=== PATIENT | male | born 1930 | race Caucasian/White ===

== ENCOUNTER 2016-07-22 23:16 | Observation (INO) | payer OTHER, MEDICARE ==
[~2016-07-22] VITALS: Ht 167.6 cm; Wt 79.8 kg
[~2016-07-22 23:16] MED LIST: ASPIR 8181 MG PO; ATENOLOL50 MG PO; ATORVASTATIN CA80 MG PO; LISINOPRIL20 MG PO; NITROSTAT0.4 MG PO
--- NOTE | 2016-07-22 23:30 | NUR ---
RECEIVED 86 YO MALE C/O LEFT UPPER CHEST AND LEFT SHOULDER PAIN X ONE HOUR WITH SOME DIAPHORESIS. PT HAS A CARDIAC HX INCLUDING CABG. PT TAKEN DIRECTLY FOR EKG.
--- NOTE | 2016-07-22 23:41 | NUR ---
DR OWENS AT BEDSIDE FOR EVAL
[2016-07-22 23:43] LABS: ABSOLUTE BASOPHIL COUNT 0 /CUMM (0.0-0.2); ABSOLUTE EOSINOPHIL COUNT 0.2 /CUMM (0.0-0.7); ABSOLUTE GRANULOCYTE CT 3.8 /CUMM (1.4-6.5); ABSOLUTE LYMPH COUNT 2.1 /CUMM (1.2-3.4); ABSOLUTE MONOCYTE COUNT 0.8 /CUMM (0.10-0.60); BASOPHIL % 0.7 % (0.0-2.0); EOSINOPHIL % 3.3 % (0-5); GRANULOCYTE % 54.3 % (42.2-75.2); HEMATOCRIT 45.5 % (42-52); MEAN CORPUSCULAR HGB 29.6 PG (27.0-31.0); MEAN CORPUSCULAR HGB CONC 33.8 G/DL (33.0-37.0); MEAN CORPUSCULAR VOLUME 87.6 FL (80.0-94.0); MEAN PLATELET VOLUME 8.6 FL (7.4-10.4); PLATELET COUNT 204 /CUMM (130-400); RBC DISTRIBUTION WIDTH 14.1 % (11.5-14.5); RED BLOOD CELL CT 5.19 /CUMM (4.70-6.10)
--- NOTE | 2016-07-22 23:49 | NUR ---
PORTABLE X-RAY AT BEDSIDE
--- NOTE | 2016-07-22 23:52 | ED CARDIAC/CP/PALPITATIONS ---
History of Present Illness General Chief Complaint: Chest Pain Stated Complaint: PT C/O CHEST PAIN CARDIAC HX Source: patient, family, old records Exam Limitations: no limitations Vital Signs & Intake/Output Vital Signs & Intake/Output Vital Signs Date Time Temp Pulse Resp B/P B/P Pulse O2 O2 Flow FiO2 Mean Ox Delivery Rate 07/23 0347 76 18 174/93 98 Room Air 07/23 0231 74 20 164/94 98 Room Air 07/23 0132 67 18 175/93 Room Air 07/22 2342 Room Air 07/22 2339 98.0 62 20 163/85 96 Room Air ED Intake and Output 07/23 0000 07/22 1200 Intake Total Output Total Balance Patient 176 lb Weight Weight Estimated Measurement Method Allergies Coded Allergies: NO KNOWN ALLERGIES (12/26/13) Reconcile Medications Aspirin (Ecotrin*) 81 MG TABLET.DR 1 TAB PO DAILY HEART HEALTH (Reported) Atenolol 50 MG TABLET 1 TAB PO BID BP (Reported) Atorvastatin Calcium 80 MG TABLET 1 TAB PO DAILY CHOLESTROL (Reported) Lisinopril 20 MG TABLET 1 TAB PO DAILY HTN (Reported) Core Measure Meds Pre-Hospital aspirin Triage Note: RECEIVED 86 YO MALE C/O LEFT UPPER CHEST AND LEFT SHOULDER PAIN X ONE HOUR WITH SOME DIAPHORESIS. PT HAS A CARDIAC HX INCLUDING CABG. PT TAKEN DIRECTLY FOR EKG. Triage Nurses Notes Reviewed? yes Onset: Just prior to arrival Duration: minute(s):, better, gone now Timing: recent history Quality/Severity: moderate, aching Location: left chest Radiation: shoulders Activities at Onset: sleep Prior Chest Pain/Card Workup: cardiac cath, echocardiography, heart attack, stress test Modifying Factors: Improves With: rest. Nitro Today/Relief: no nitro taken today Aspirin Today: 325 mg x 1, provided at home Associated Symptoms: dizziness HPI: Prior to admission patient awoke with left-sided chest pain described as achy moderate in severity radiating to left arm constant resolving after a few minutes and Tylenol. Associated with dizziness. He denies fever chills nausea vomiting diarrhea abdominal pain shortness of breath headache dysuria rash bleeding. Past History Travel History Traveled to [place] past 21 day No Medical History Any Pertinent Medical History? see below for history Neurological: NONE EENT: NONE Cardiovascular: CAD, hypertension, hyperlipidemia Respiratory: NONE Gastrointestinal: NONE Hepatic: NONE Renal: NONE Musculoskeletal: NONE Psychiatric: NONE Endocrine: NONE Blood Disorders: NONE Cancer(s): NONE History of MRSA: No History of VRE: No History of CDIFF: No Pneumonia Vaccine: 02/07/09 Surgical History Surgical History: non-contributory Psychosocial History Who do you live with Family What is your primary language Nam[place]ian Tobacco Use: Quit >30 days ago Family History Family History, If Any: Relation not specified for: *No pertinent family history Hx Contributory? No Review of Systems Review of Systems Constitutional: Reports: no symptoms. EENTM: Reports: no symptoms. Respiratory: Reports: no symptoms. Cardiovascular: Reports: see HPI, chest pain. GI: Reports: no symptoms. Genitourinary: Reports: no symptoms. Musculoskeletal: Reports: no symptoms. Skin: Reports: no symptoms. Neurological/Psychological: Reports: no symptoms. Hematologic/Endocrine: Reports: no symptoms. Immunologic/Allergic: Reports: no symptoms. All Other Systems: Reviewed and Negative Physical Exam Physical Exam General Appearance: well developed/nourished, alert, awake, anxious, mild distress Head: atraumatic, normal appearance Eyes: Bilateral: normal appearance, PERRL, EOMI. Ears, Nose, Throat: normal pharynx, normal ENT inspection Neck: normal inspection, supple, full range of motion, no midline tenderness Respiratory: normal breath sounds, chest non-tender, no respiratory distress, quiet respiration, lungs clear Cardiovascular: regular rate/rhythm, normal peripheral pulses, norml femoral pulses equa Peripheral Pulses: 4+ carotid (R), 4+ carotid (L) Gastrointestinal: normal bowel sounds, soft, non-tender, no organomegaly Back: normal inspection, normal range of motion Extremities: normal inspection, normal capillary refill, normal range of motion, no edema Neurologic/Psych: no motor/sensory deficits, awake, alert, oriented x 3, normal gait, normal mood/affect Reflexes: 2+: bicep (R), bicep (L). Skin: intact, normal color Lymphatic: no anterior cervical taye Core Measures ACS in differential dx? Yes ASA ordered for poss ACS? No-other contraindication (taken VEGETABLE SCULLION) Severe Sepsis Present: No Septic Shock Present: No Progress Differential Diagnosis: AMI, costochondritis, pneumonia Plan of Care: Orders Procedure Date/time Status Heart Healthy Diet 07/23 B Active TROPONIN LEVEL 07/23 1000 Active EKG 07/23 1000 Active Pathway - chart 07/23 0443 Active Code Status 07/23 0443 Active TROPONIN LEVEL 07/23 0354 Complete Teach/Educate 07/23 033 Active Pain Treatment and Response 07/23 033 Active Nutritional Intake, Monitor 07/23 330 Active Isolation 07/23 330 Active Patient Care Conference 07/23 0331 Active Patient Data 07/23 0242 Active OXYGEN SETUP (GEN) 07/23 222 Active Saline Lock 07/[address] in observation 07/23 222 Active Vital Signs 07/23 222 Active Activity/Ambulation 07/23 222 Active Code Status 07/23 222 Complete EKG 07/23 0122 Active House Staff 07/23 UNK Active VTE Mechanical Prophylaxis 07/23 UNK Active Vital Signs 07/23 UNK Active Intake & Output 07/22 2341 Active TROPONIN LEVEL 07/22 2324 Complete MAGNESIUM 07/22 2324 Complete COMPREHENSIVE METABOLIC PANEL 07/22 2324 Complete CBC WITHOUT DIFFERENTIAL 07/22 2324 Complete EKG 07/22 2320 Active Current Medications Sig/Levi Start time Last Medication Dose Stop Time Status Admin Aspirin Buffered 81 MG DAILY 07/23 1000 AC (Ecotrin) Atenolol 50 MG BID 07/23 1000 AC (Tenormin) Atorvastatin Calcium 80 MG DAILY 07/23 1000 AC (Lipitor) Enoxaparin Sodium 40 MG DAILY 07/23 1000 AC (Lovenox) Lisinopril 20 MG DAILY 07/23 1000 AC (Prinivil) Omeprazole 40 MG DAILY AC 07/23 0700 AC (Prilosec) Nitroglycerin 0.5 GM Q6P PRN 07/23 0500 AC (Nitro-Bid) Sodium Chloride 1,000 ML Q13H 07/23 0445 AC (Normal Saline 0.9%) 07/23 1744 Laboratory Tests 07/23/16 0400: Troponin I 0.02 07/22/16 2331: Anion Gap 12, Estimated GFR > 60, BUN/Creatinine Ratio 20.9, Glucose 110 H, Calcium 9.1, Magnesium 2.0, Total Bilirubin 0.6, AST 34, ALT 38, Alkaline Phosphatase 81, Troponin I < 0.01, Total Protein 6.8, Albumin 3.9, Globulin 2.9, Albumin/Globulin Ratio 1.3, CBC w Diff NO MAN DIFF REQ, RBC 5.19, MCV 87.6, MCH 29.6, RDW 14.1, MPV 8.6, Gran % 54.3, Lymphocytes % 30.2, Monocytes % 11.5 H, Eosinophils % 3.3, Basophils % 0.7, Absolute Granulocytes 3.8, Absolute Lymphocytes 2.1, Absolute Monocytes 0.8 H, Absolute Eosinophils 0.2, Absolute Basophils 0, PUBS MCHC 33.8 Diagnostic Imaging: Viewed by Me: Radiology Read. Discussed w/RAD: Radiology Read. CXR Impression: no acute abnormality Initial ED EKG: normal axis, normal intervals, normal p-waves, normal QRS complex, normal sinus rhythm, nonspecific ST T wave chg Prior EKG: unchanged Rhythm Strip: normal sinus rhythm Departure Departure Disposition: STILL A PATIENT Condition: Stable Clinical Impression Primary Impression: Chest pain with moderate risk of acute coronary syndrome Referrals: ARCELIA VILLALTA MD (PCP/Family) Departure Forms: Customer Survey General Discharge Information Observation Note Spoke With: ARCELIA VILLALTA MD Physician Advisor Notified: BRANDYN MACEDO DO Place Patient In: Non-ED OBS Care Area Rationale for Observation: My rational for observation is as follows second episode of chest pain in the emergency department relief with nitroglycerin having previous CABG with recent cardiac catheterization reportedly showing 1 stenosed vessel cardiac monitoring serial lab exam medication adjustment cardiology evaluation continuing care discharge planning. Critical Care Note Critical Care Note Critical Care Time: 30-74 min (40)
--- NOTE | 2016-07-23 00:18 | RADIOLOGY REPORT ---
EXAMINATION: XR PORTABLE CHEST CLINICAL INFORMATION: Chest pain COMPARISON: None TECHNIQUE: Portable frontal view of the chest was obtained. FINDINGS: The lungs are mildly hypoinflated and appear clear without focal consolidation. No evidence of pneumothorax, pleural effusion, or pulmonary edema. Cardiac size is within normal limits. Calcification is present at the aortic arch. Sternal wires are present. No acute osseous findings are seen. IMPRESSION: No acute cardiopulmonary findings.
--- NOTE | 2016-07-23 01:28 | NUR ---
PT REPORTING 7/10 "SQUEEZING" PAIN IN LEFT ARM RADIATING TO CHEST. DR OWENS NOTIFIED AND AT BEDSIDE FOR EVAL. REPEAT EKG DONE. PT MEDICATED WITH NITRO 0.4MG SL. PT REPORTED RELIEF POST MEDICATION ADMIN. PAIN DECREASED TO 5/10
--- NOTE | 2016-07-23 02:30 | NUR ---
IV ESTABLISHED IN R FA. 1GM NITRO PASTE APPLIED TO L CHEST WALL
--- NOTE | 2016-07-23 03:01 | History & Physical ---
MARCIAL NARANJO,[facility] 07/23/16 0301: General Information and HPI MD Statement: I have seen and personally examined JAKUB BURROWS and documented this H&P. The patient is a 86 year old M who presented with a patient stated chief complaint of [chest pain]. Source of Information: patient Exam Limitations: no limitations History of Present Illness: Patient is a 86-year-old with PMH of CAD, HTN, HLD, who is brought in by his son due to sudden onset chest pain that started while he was sleeping. Pain was located on the left side of the chest, radiating to left shoulder but not the jaw. Denied midsternal chest pain or pressure. Denied any diaphoresis, palpitation, dizziness, nausea/vomiting. Pain lasted about 10-15 minutes and did not resolve with tylenol. Denies heartburn and acid reflux, denies shortness of breath or coughing. Patient has a history of CABG in 2002 at [facility], follows up with Dr. Hernandez. Allergies/Medications Allergies: Coded Allergies: NO KNOWN ALLERGIES (12/26/13) Past History Travel History Traveled to [place] past 21 day No Medical History Neurological: NONE EENT: NONE Cardiovascular: CAD, hypertension, hyperlipidemia Respiratory: NONE Gastrointestinal: NONE Hepatic: NONE Renal: NONE Musculoskeletal: NONE Psychiatric: NONE Endocrine: NONE Blood Disorders: NONE Cancer(s): NONE History of MRSA: No History of VRE: No History of CDIFF: No Pneumonia Vaccine: 02/07/09 Surgical History Surgical History: non-contributory (CABG in 2002) Past Family/Social History Family History Relations & Conditions if any Relation not specified for: *No pertinent family history Review of Systems Review of Systems Constitutional: Denies: chills, fever. EENTM: Reports: no symptoms. Cardiovascular: Denies: chest pain, palpitations, peripheral edema, syncope. Respiratory: Denies: cough, short of breath, sputum production. GI: Reports: no symptoms. Genitourinary: Reports: no symptoms. Musculoskeletal: Reports: no symptoms. Skin: Reports: no symptoms. Neurological/Psychological: Reports: no symptoms. Hematologic/Endocrine: Reports: no symptoms. Exam & Diagnostic Data Last 24 Hrs of Vital Signs/I&O Vital Signs Date Time Temp Pulse Resp B/P B/P Pulse O2 O2 Flow FiO2 Mean Ox Delivery Rate 07/23 0347 76 18 174/93 98 Room Air 07/23 0231 74 20 164/94 98 Room Air 07/23 0132 67 18 175/93 Room Air 07/22 2342 Room Air 07/22 2339 98.0 62 20 163/85 96 Room Air Intake & Output 07/23 0800 07/23 0000 07/22 1600 Intake Total Output Total Balance Patient 79.832 kg 79.832 kg Weight Weight Estimated Measurement Method Physical Exam General Appearance Alert, Oriented X3, Cooperative, No Acute Distress Skin No Significant Lesion Skin Temp/Moisture Exam: Warm/Dry Sepsis Skin Exam (color): Normal for Ethnicity HEENT Atraumatic, EOMI, Mucous Membr. moist/pink, pupils equal, round and reactive to light Neck Supple Cardiovascular Regular Rate, Normal S1, Normal S2, No Murmurs Lungs Clear to Auscultation, Normal Air Movement Abdomen Normal Bowel Sounds, Soft, No Tenderness Neurological Normal Speech, Strength at 5/5 X4 Ext, Normal Tone, Sensation Intact, Cranial Nerves 3-12 NL Extremities No Edema, Normal Pulses, No Tenderness/Swelling Vascular Pulses Symmetrical Last 24 Hrs of Labs/Felix: Laboratory Tests 07/23/16 0400: Troponin I 0.02 07/22/16 2331: Anion Gap 12, Estimated GFR > 60, BUN/Creatinine Ratio 20.9, Glucose 110 H, Calcium 9.1, Magnesium 2.0, Total Bilirubin 0.6, AST 34, ALT 38, Alkaline Phosphatase 81, Troponin I < 0.01, Total Protein 6.8, Albumin 3.9, Globulin 2.9, Albumin/Globulin Ratio 1.3, CBC w Diff NO MAN DIFF REQ, RBC 5.19, MCV 87.6, MCH 29.6, RDW 14.1, MPV 8.6, Gran % 54.3, Lymphocytes % 30.2, Monocytes % 11.5 H, Eosinophils % 3.3, Basophils % 0.7, Absolute Granulocytes 3.8, Absolute Lymphocytes 2.1, Absolute Monocytes 0.8 H, Absolute Eosinophils 0.2, Absolute Basophils 0, PUBS MCHC 33.8 Assessment/Plan Assessment: Patient is a 86-year-old with PMH of HTN, HLD, CABG in 2002 who is brought in by his son due to sudden onset chest pain that started while he was sleeping. Pain was located on the left side of the chest, radiating to left shoulder but bit the jaw. Problem list and plan: 1. Chest pain, rule out ACS * continuous cardiac monitoring * no initial EKG changes, Troponin (-) * serial troponin and EKG * continue aspirin, statin, beta brock * cardiology consult in am 2. Hx of CABG, HTN, HLD * Continue atenolol, lisinopril on hold due to LULA * Continue atorvastatin Heart healthy diet DVT prophylaxis: SC Lovenox Full code As Ranked By This Provider Problem List: 1. Chest pain Core Measures/Miscellaneous Acute Coronary Syndrome ACS Diagnosis: No Cerebrovascular Accident CVA/TIA Diagnosis: No Congestive Heart Failure CHF Diagnosis: No VTE (View Protocol) VTE Risk Factors: Acute medical illness, Age > 40 No [facility] VTE prophylaxis d/t: VTE low risk, No contraindications No VTE Pharm Prophylaxis d/t: VTE low risk, No contraindications VTE Diagnosis: No VTE Type: NONE VTE Confirmed by (Test): NONE Sepsis (View Protocol) Severe Sepsis Present: No Septic Shock Septic Shock Present: No Miscellaneous Documentation Attending Case Discussed With: ARCELIA VILLALTA MD Primary Care Physician: ARCELIA VILLALTA MD Patient sees these Specialists Dr. Hernandez Level of Patient Care: Telemetry RUBENS BUTLER 07/23/16 0447: General Information and HPI Allergies/Medications Home Med list Aspirin (Ecotrin*) 81 MG TABLET.DR 1 TAB PO DAILY HEART HEALTH (Reported) Atenolol 50 MG TABLET 1 TAB PO BID BP (Reported) Atorvastatin Calcium 80 MG TABLET 1 TAB PO DAILY CHOLESTROL (Reported) Lisinopril 20 MG TABLET 1 TAB PO DAILY HTN (Reported) Resident Review Statement Resident Statement: examined this patient, discussed with equine intern, agreed with equine intern, reviewed images, amended to note Other Findings: 86 year old gentleman with history of hypertension, dyslipidemia and CAD s/p CANG in 2002 presents to [facility] ED after experiencing chest discomfort , that woke him up from his sleep. The pain radiated from his chest to left arm , lasted around 15 minutes, and was associated with diaphoresis, no nausea. Patient took Tylenol for the pain, to no effect. He denied any lightheadedness or palpitations. Denies any acid reflux, but patient admits to going to a birthday republican last night, where he had a small meal and cake. Patient came to the ED and the electrocardiogram reveals normal sinus rhythm. Labs reviewed, no significant abnormalities. SAMANTHA score of 4, at risk for recurrent ischemia requiring urgent revascularization. 1. Unstable angina: Admit to telemetry. Rule out with serial troponins and EKG. Continue aspirin, statin and beta brock. Cardiology evaluation. Trial of acid suppression. 2. Hypertension: Continue lisinopril, atenolol. 3. Hyperlipidemia: Continue atorvastatin. Full code. Heart healthy diet. Lovenox for DVT prophylaxis.
--- NOTE | 2016-07-23 03:04 | NUR ---
POC: PATIENT TELE OBS HOLD IN ED. PATIENT RESTING ON STRETCHER IN ROOM AT THIS TIME, HR: 70 NSR ON MONITOR.
--- NOTE | 2016-07-23 03:46 | NUR ---
AWOKE PATIENT FROM SLEEP TO APPLY ALPS. PATIENT DENIES CURRENT CP. HR:76 NSR ON MONITOR.
--- NOTE | 2016-07-23 03:47 | NUR ---
PATIENT AMBULATORY TO AND FROM BATHROOM W/ STABLE GAIT NOTED. REPLACED ON LEATHER STAKER WHEN RETURNED TO ROOM. CONTINUES TO DENY CP. IPOC INITIATED AND UTD.
--- NOTE | 2016-07-23 03:58 | NUR ---
AWOKE PATIENT FROM SLEEP AGAIN TO OBTAIN REPEAT TROP AT THIS TIME.
--- NOTE | 2016-07-23 04:11 | NUR ---
HOUSE STAFF AT BEDSIDE FOR EVAL.
[2016-07-23] MEDS ORDERED: ASPIRIN EC81 M1 PO (04:44)
[2016-07-23] MEDS ORDERED: ATENOLOL50 M1 PO (04:44)
[2016-07-23] MEDS ORDERED: LISINOPRIL20 M1 PO (04:45)
[2016-07-23] MEDS ORDERED: ATORVASTATIN CA80 M1 PO (04:45)
--- NOTE | 2016-07-23 06:04 | NUR ---
PATIENT PLACED IN HOSPITAL BED AT THIS TIME, ALPS REMAIN IN PLACE. PATIENT BP:147/85, HR:68 NSR. PATIENT DENIES ANY CP. AMBULATORY TO BATHROOM IN ROOM W/O ASSIST/ DIFFICULTY.
--- NOTE | 2016-07-23 06:15 | NUR ---
PATIENT MEDICATED W/ PRILOSEC AND NORVASC PER EMAR. TOLERATED WELL. ALPS AND FUNCTIONAL SKILLS TUTOR REMAIN IN PLACE. NS INFUSING AT 75ML/HR PER EMAR. TOLERATING WELL.
--- NOTE | 2016-07-23 07:58 | NUR ---
ASSUMED CARE OF PT WHO IS AWAKE AND ALERT. PT DENIES CP/SOB AT THIS TIME. PT DECLINES BREAKFAST TRAY. PT UNDERSTANDS THAT REPEAT TROPONIN AND EKG DUE AT 1000
--- NOTE | 2016-07-23 08:28 | NUR ---
FAMILY AT BEDSIDE. PT EATING BREAKFAST TRAY
--- NOTE | 2016-07-23 08:57 | NUR ---
PT ASSISTED TO BR.
--- NOTE | 2016-07-23 10:38 | NUR ---
SON OF PT AT BEDSIDE. PT OOB TO BR AGAIN WITH STEADY GAIT. WAITING FOR ADMISSION BED. PT AWARE
--- NOTE | 2016-07-23 11:02 | PN- Att Addend ---
Attending Addendum Attending Brief Note 86-year-old white male with history of coronary artery disease and he stated that he went to bed last night in a couple of hours later he woke up with severe chest pain radiated to his left arm lasted about 10 minutes a so this morning the son brought him to the emergency room for evaluation. Due to his history of coronary artery disease and will be monitored he will have cardiac enzymes serial EKGs by his first troponinI was 0.[address] Hernandez to see the patient in consultation. Laboratory Tests 07/23 07/23 07/22 1038 [id number] 2331 Chemistry Sodium (137 - 145 mmol/L) 142 Potassium (3.5 - 5.1 mmol/L) 4.3 Chloride (98 - 107 mmol/L) 105 Carbon Dioxide (22 - 30 mmol/L) 25 Anion Gap (5 - 16) 12 BUN (9 - 20 mg/dL) 23 H Creatinine (0.7 - 1.2 mg/dL) 1.1 Estimated GFR (>60 ml/min) > 60 BUN/Creatinine Ratio (7 - 25 %) 20.9 Glucose (65 - 99 mg/dL) 110 H Calcium (8.4 - 10.2 mg/dL) 9.1 Magnesium (1.6 - 2.3 mg/dL) 2.0 Total Bilirubin (0.2 - 1.3 mg/dL) 0.6 AST (17 - 59 U/L) 34 ALT (21 - 72 U/L) 38 Alkaline Phosphatase (< 127 U/L) 81 Troponin I (<0.11 ng/ml) Pending 0.02 < 0.01 Total Protein (6.3 - 8.2 g/dL) 6.8 Albumin (3.5 - 5.0 g/dL) 3.9 Globulin (1.9 - 4.2 gm/dL) 2.9 Albumin/Globulin Ratio (1.1 - 2.2 %) 1.3 Hematology CBC w Diff NO MAN DIFF REQ WBC (4.8 - 10.8 /CUMM) 7.0 RBC (4.70 - 6.10 /CUMM) 5.19 Hgb (14.0 - 18.0 G/DL) 15.4 Hct (42 - 52 %) 45.5 MCV (80.0 - 94.0 FL) 87.6 MCH (27.0 - 31.0 PG) 29.6 RDW (11.5 - 14.5 %) 14.1 Plt Count (130 - 400 /CUMM) 204 MPV (7.4 - 10.4 FL) 8.6 Gran % (42.2 - 75.2 %) 54.3 Lymphocytes % (20.5 - 51.1 %) 30.2 Monocytes % (1.7 - 9.3 %) 11.5 H Eosinophils % (0 - 5 %) 3.3 Basophils % (0.0 - 2.0 %) 0.7 Absolute Granulocytes (1.4 - 6.5 /CUMM) 3.8 Absolute Lymphocytes (1.2 - 3.4 /CUMM) 2.1 Absolute Monocytes (0.10 - 0.60 /CUMM) 0.8 H Absolute Eosinophils (0.0 - 0.7 /CUMM) 0.2 Absolute Basophils (0.0 - 0.2 /CUMM) 0 PUBS MCHC (33.0 - 37.0 G/DL) 33.8 The patient is feeling of pain at the time of my interview.
--- NOTE | 2016-07-23 11:27 | NUR ---
REPORT RECEIVED FROM MARISOL LIMA; CARE OF PT ASSUMED
--- NOTE | 2016-07-23 13:59 | Patient Discharge Instructions ---
Discharge Instructions General Discharge Information You were seen/treated for: chest pain Special Instructions: please follow up with case management associate with in a week of discharge. please follow up with PCP with in a week of discharge. Diet Continue normal diet: No (heart healthy diet) Activity Full Activity/No Limits: No (as tolerated) Acute Coronary Syndrome Inclusion Criteria At DC or during hospital stay patient has or had the following: ACS DIAGNOSIS No Discharge Core Measures Meds if any: Prescribed or Continued at Discharge Meds if any: NOT Prescribed or Continued at Discharge Congestive Heart Failure Inclusion Criteria At DC or during hospital stay patient has or had the following: CHF DIAGNOSIS No Discharge Core Measures Meds if any: Prescribed or Continued at Discharge Meds if any: NOT Prescribed or Continued at Discharge Cerebrovascular accident Inclusion Criteria At DC or during hospital stay patient has or had the following: CVA/TIA Diagnosis No Discharge Core Measures Meds if any: Prescribed or Continued at Discharge Meds if any: NOT Prescribed or Continued at Discharge Venous thromboembolism Inclusion Criteria VTE Diagnosis No VTE Type NONE VTE Confirmed by (Test) NONE Discharge Core Measures - Per Current guidelines, there needs to be overlap - treatment for the first 5 days of Warfarin therapy. - If discharged on Warfarin prior to 5 days of - overlap therapy, the patient will need to be - assessed for post discharge needs including - *Post discharge parental anticoagulation - *Warfarin and/or parental anticoagulation education - *Follow up date to check INR post discharge At least 5 days overlap therapy as Inpatient No Meds if any: Prescribed or Continued at Discharge Warfarin No Note: Overlap Therapy is Warfarin and Anticoagulant Meds if any: NOT Prescribed or Continued at Discharge
[2016-07-23 14:02] VITALS: BP 172/90
--- NOTE | 2016-07-23 15:39 | Event Note ---
Event Note Event Note: patient is seen and examined at the bed side. He doesnt have any active complain. Serial troponins were negative. We stopped IV fluids. We place the consult for cardiology.Talked over the phone with Dr Hernandez and will decide for discharge according to his rcms.
--- NOTE | 2016-07-23 16:12 | NUR ---
FAMILY IS UPDATED ON BED STATUS.
--- NOTE | 2016-07-23 18:04 | Cons- Cardiology ---
General Information and HPI Consulting Request Date of Consult: 07/23/16 Requested By: ARCELIA VILLALTA MD History of Present Illness: Gay is an 86 year old male with history of hypertension, dyslipidemia and coronary artery disease s/p CABG in 2005. Last evening this patient was lying in bed when he experienced a severe chest pressure radiating to his left arm associated with diaphoresis. It lasted about 15 minutes before resolving. At his baseline he has slowed down according to his family. Otherwise the patient denies any shortness of breath, lightheadedness or palpitations. There was no association of the pain with eating or breathing. He is now pain free with normal cardiac enzymes. Allergies/Medications Allergies: Coded Allergies: NO KNOWN ALLERGIES (12/26/13) Home Med List: Aspirin (Ecotrin*) 81 MG TABLET.DR 1 TAB PO DAILY HEART HEALTH (Reported) Atenolol 50 MG TABLET 1 TAB PO BID BP (Reported) Atorvastatin Calcium 80 MG TABLET 1 TAB PO DAILY CHOLESTROL (Reported) Lisinopril 20 MG TABLET 1 TAB PO DAILY HTN (Reported) Past History Travel History Traveled to [place] past 21 day No Medical History Neurological: NONE EENT: NONE Cardiovascular: CAD, hypertension, hyperlipidemia Respiratory: NONE Gastrointestinal: NONE Hepatic: NONE Renal: NONE Musculoskeletal: NONE Psychiatric: NONE Endocrine: NONE Blood Disorders: NONE Cancer(s): 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 Surgical History Surgical History: non-contributory Family History Relations & Conditions If Any: Relation not specified for: *No pertinent family history Psychosocial History Smoking Status: Former Smoker Exam & Diagnostic Data Vital Signs and I&O Vital Signs Date Time Temp Pulse Resp B/P B/P Pulse O2 O2 Flow FiO2 Mean Ox Delivery Rate 07/23 1736 98.2 64 16 132/84 97 Room Air 07/23 1519 98.1 62 16 166/88 96 Room Air 07/23 1402 97.2 66 172/90 07/23 1026 97.1 86 18 138/90 96 07/23 0945 98.1 69 20 150/80 07/23 0945 98.1 69 20 150/80 07/23 0614 98.1 68 18 147/85 07/23 0604 98.1 68 18 147/85 95 Room Air 07/23 0347 76 18 174/93 98 Room Air 07/23 0231 74 20 164/94 98 Room Air 07/23 0132 67 18 175/93 Room Air 07/22 2342 Room Air 07/22 2339 98.0 62 20 163/85 96 Room Air Intake & Output 07/23 1600 07/23 0800 07/23 0000 07/22 1600 07/22 0800 07/22 0000 Intake Total 240 Output Total Balance 240 Intake, Oral 240 Patient 176 lb 176 lb Weight Weight Estimated Measurement Method Physical Exam: General: WD/ WN male in NAD; alert and oriented x 3 HEENT: NC/ AT, PERRL, EOMI Neck: no JVD, no carotid bruit Heart: RRR w/o murmur Lungs: clear bilaterally Abdomen: soft, NT, +ve bowel sounds Extremities: no edema Assessment/Plan Assessment/Plan * This patient has known coronary artery disease with old bypass grafts and symptoms very suggestive of unstable angina. He feels gratifyingly well at present with normal cardiac enzymes. This patient should be monitored on telemetry and administered IV heparin for 48 hours. If stable after that time he may be discharged to home with a plan for outpatient stress test. In addition to IV heparin continue aspirin, NTG patch as previously prescribed, beta blockers, Lisinopril and a statin all as previously prescribed. Consult Acknowledgment - Thank you for your consult request.
[2016-07-23 23:31] VITALS: BP 178/89
--- NOTE | 2016-07-24 00:09 | NUR ---
REPORT GIVEN TO MARISOL JORDAN
[2016-07-24 01:41] LABS: PTT > 120 SEC (25-37)
--- NOTE | 2016-07-24 02:22 | Event Note ---
Event Note Event Note: I spoke with the Attending Dr. Lutz and he wants the patient's observation status to be extended for 24hrs so she can get the IV heparin ordered by cardiology.
[2016-07-24 02:34] VITALS: BP 168/104
[2016-07-24 08:25] LABS: PTT 62 SEC (25-37)
[2016-07-24 09:09] VITALS: BP 122/68
--- NOTE | 2016-07-24 12:04 | PN- Att Addend ---
Attending Addendum Attending Brief Note Patient is chest pain-free this morning and has no other complaints General Appearance: Alert, No Acute Distress Skin: Grossly normal HEENT: PEERLA Neck: Supple, No JVD Cardiovascular: Regular Rate, Normal S1, Normal S2, No Murmurs Lungs: Clear to Auscultation, Normal Air Movement Abdomen: Normal Bowel Sounds, Soft, No Tenderness Neurological: Normal Speech, Strength at 5/5 X4 Ext, Cranial Nerves 3-12 NL, Reflexes 2+ Extremities: No Clubbing, No Cyanosis, No Edema Vascular: Normal Pulses Assessment Unstable angina currently on heparin drip for last 24 hours and he is chest pain -free. Patient is requesting to be discharged tomorrow since it's a Father's Day. Plan was discussed with cardiology. We'll continue heparin drip for 24 hours and if he remains asymptomatic he will be discharged home with outpatient follow-up with cardiology. Patient had a extensive cardiac evaluation including cardiac cath fall which according to the family and the patient was negative. Plan Continue heparin drip for next 24 hours Continue telemetry monitoring Observe for symptoms Continue other home meds Current Medications Sig/Levi Start time Last Medication Dose Route Stop Time Status Admin Aspirin Buffered 81 MG DAILY 07/23 1000 AC 07/24 PO 0931 Atenolol 50 MG BID 07/23 1000 AC 07/24 PO 0931 Atorvastatin Calcium 80 MG DAILY 07/23 1000 AC 07/24 PO 0931 Enoxaparin Sodium 40 MG DAILY 07/23 1000 DC 07/23 SC 0945 Heparin Sodium/ 25,000 UNIT Q24H 07/23 1845 AC 07/23 Dextrose IV 1847 Dextrose/Water 500 ML Lisinopril 20 MG DAILY 07/23 1000 AC 07/24 PO 0931 Nitroglycerin 0.5 GM Q6P PRN 07/23 0500 TOP Omeprazole 40 MG DAILY AC 07/23 0700 AC 07/24 PO 0930 Sodium Chloride 1,000 ML Q13H 07/23 0445 DC 07/23 IV 07/23 1744 0614 Laboratory Tests 07/24 07/24 0611 0104 Coagulation APTT (25 - 37 SEC) 62 H > 120 *H Vital Signs Date Time Temp Pulse Resp B/P B/P Pulse O2 O2 Flow FiO2 Mean Ox Delivery Rate 07/24 0931 60 122/68 07/24 0931 60 122/68 06/17 0909 98.2 60 18 122/68 95 Room Air 06/17 0234 98.1 62 20 168/104 94 Room Air 06/16 2331 63 19 178/89 95 Room Air 06/16 2331 63 19 178/89 95 Room Air 06/16 2234 66 17 158/82 06/16 2031 98.6 66 17 158/82 99 Room Air 06/16 1736 98.2 64 16 132/84 97 Room Air 16 1519 98.1 62 16 166/88 96 Room Air 06/16 1402 97.2 66 172/90 Plan
--- NOTE | 2016-07-24 13:24 | PN-Observation ---
Observation Note Observation Note _ I have personally examined JAKUB BURROWS. him disposition is uncertain at this time. Before a determination can be made, he requires continued observation for unstable angina Assessment/Plan Assessment: Jakub is an 86 year old male with history of hypertension, dyslipidemia and coronary artery disease s/p CABG in 2005. a day before yesterday he experienced a severe chest pressure radiating to his left arm associated with diaphoresis. No repeat episodes of chest pain, patient denies any shortness of breath, lightheadedness or palpitations. trops and ekg negative. Patient to be continued on IV heparin for next 24 hours. Problem List: 1. Unstable angina Subjective Follow-up For: unstable angina Review of Systems Constitutional: Denies: chills, fever. Cardiovascular: Denies: chest pain, orthopena, palpitations. Objective Last 24 Hrs of Vital Signs/I&O Vital Signs Date Time Temp Pulse Resp B/P B/P Pulse O2 O2 Flow FiO2 Mean Ox Delivery Rate 07/24 0931 60 122/68 07/24 0931 60 122/68 07/24 0909 98.2 60 18 122/68 95 Room Air 07/24 0234 98.1 62 20 168/104 94 Room Air 07/23 2331 63 19 178/89 95 Room Air 07/23 2331 63 19 178/89 95 Room Air 07/23 2234 66 17 158/82 07/23 2031 98.6 66 17 158/82 99 Room Air 07/23 1736 98.2 64 16 132/84 97 Room Air 07/23 1519 98.1 62 16 166/88 96 Room Air 07/23 1402 97.2 66 172/90 Intake & Output 07/24 1600 07/24 0800 07/24 0000 Intake Total 800 Output Total Balance 800 Intake, IV 800 Physical Exam General Appearance: Alert, Oriented X3, Cooperative, No Acute Distress Cardiovascular: Regular Rate, Normal S1, Normal S2, No Murmurs Lungs: Clear to Auscultation, Normal Air Movement Abdomen: Normal Bowel Sounds, Soft, No Tenderness Extremities: No Clubbing, No Cyanosis, No Edema
[2016-07-24 15:39] VITALS: BP 104/70
--- NOTE | 2016-07-24 19:08 | PN- Cardiology ---
Subjective Subjective: The patient reports that he is feeling well. No further chest pain. No shortness of breath. No palpitations. No diaphoresis. Objective Vital Signs and I&Os Vital Signs Date Time Temp Pulse Resp B/P B/P Pulse O2 O2 Flow FiO2 Mean Ox Delivery Rate 07/24 1539 98.6 70 20 104/70 95 07/24 0931 60 122/68 07/24 0931 60 122/68 07/24 0909 98.2 60 18 122/68 95 Room Air 07/24 0234 98.1 62 20 168/104 94 Room Air 07/23 2331 63 19 178/89 95 Room Air 07/23 2331 63 19 178/89 95 Room Air 07/23 2234 66 17 158/82 07/23 2031 98.6 66 17 158/82 99 Room Air Intake & Output 07/24 1600 07/24 0800 07/24 0000 07/23 1600 07/23 0800 07/23 0000 Intake Total 800 240 Output Total Balance 800 240 Intake, IV 800 Intake, Oral 240 Patient 176 lb 176 lb Weight Weight Estimated Measurement Method Physical Exam: Gen: NAD HEENT: normal Lungs: clear to auscultation, normal resp. effort Heart: RRR, S1, S2, no murmurs Abdomen: Soft, nontender, no masses Extremities: No clubbing, cyanosis, or edema. Neuro: Alert and oriented x 3, cranial nerves intact Current Medications: Current Medications Sig/Levi Start time Last Medication Dose Route Stop Time Status Admin Aspirin Buffered 81 MG DAILY 07/23 1000 AC 07/24 PO 0931 Atenolol 50 MG BID 07/23 1000 AC 07/24 PO 0931 Atorvastatin Calcium 80 MG DAILY 07/23 1000 AC 07/24 PO 0931 Heparin Sodium/ 25,000 UNIT Q24H 07/23 1845 07/23 Dextrose IV 1847 Dextrose/Water 500 ML Lisinopril 20 MG DAILY 07/23 1000 AC 07/24 PO 0931 Nitroglycerin 0.5 GM Q6P PRN 07/23 0500 [facility] Omeprazole 40 MG DAILY AC 07/23 0700 07/24 PO 0930 Results Last 48 Hrs of Labs/Mics: Laboratory Tests 07/24/16 1830: APTT Pending 07/24/16 0611: APTT 62 H 07/24/16 0104: APTT > 120 *H 07/23/16 1038: Troponin I 0.05 07/23/16 0400: Troponin I 0.02 07/22/16 2331: Anion Gap 12, Estimated GFR > 60, BUN/Creatinine Ratio 20.9, Glucose 110 H, Calcium 9.1, Magnesium 2.0, Total Bilirubin 0.6, AST 34, ALT 38, Alkaline Phosphatase 81, Troponin I < 0.01, Total Protein 6.8, Albumin 3.9, Globulin 2.9, Albumin/Globulin Ratio 1.3, Triglycerides 202 H, Cholesterol 144, LDL Cholesterol, Calc 65, HDL Cholesterol 39 L, Cholesterol/HDL Ratio 4, CBC w Diff NO MAN DIFF REQ, RBC 5.19, MCV 87.6, MCH 29.6, RDW 14.1, MPV 8.6, Gran % 54.3, Lymphocytes % 30.2, Monocytes % 11.5 H, Eosinophils % 3.3, Basophils % 0.7, Absolute Granulocytes 3.8, Absolute Lymphocytes 2.1, Absolute Monocytes 0.8 H, Absolute Eosinophils 0.2, Absolute Basophils 0, PUBS MCHC 33.8 Assessment/Plan Assessment/Plan Assessment: 1. CAD, with remote history of CABG 2. Chest pain, ruled out for myocardial infarction. Possible unstable angina Plan: * Continue IV heparin * Continue aspirin * Continue statin * Discharge tomorrow if stable for further workup as outpatient Continue telemetry? Yes
[2016-07-24 19:09] LABS: PTT 103 SEC (25-37)
[2016-07-24 23:57] VITALS: BP 110/68
[2016-07-25 03:07] LABS: PTT 65 SEC (25-37)
[2016-07-25 08:11] VITALS: BP 140/80
[2016-07-25 08:28] LABS: ABSOLUTE BASOPHIL COUNT 0 /CUMM (0.0-0.2); ABSOLUTE EOSINOPHIL COUNT 0.4 /CUMM (0.0-0.7); ABSOLUTE GRANULOCYTE CT 4.8 /CUMM (1.4-6.5); ABSOLUTE LYMPH COUNT 1.4 /CUMM (1.2-3.4); ABSOLUTE MONOCYTE COUNT 1.1 /CUMM (0.10-0.60); BASOPHIL % 0.4 % (0.0-2.0); EOSINOPHIL % 5.1 % (0-5); HEMATOCRIT 44.8 % (42-52); MEAN CORPUSCULAR HGB 29.5 PG (27.0-31.0); MEAN CORPUSCULAR HGB CONC 33.3 G/DL (33.0-37.0); MEAN CORPUSCULAR VOLUME 88.7 FL (80.0-94.0); MEAN PLATELET VOLUME 9.2 FL (7.4-10.4); PLATELET COUNT 191 /CUMM (130-400); RED BLOOD CELL CT 5.06 /CUMM (4.70-6.10); WHITE BLOOD CELL COUNT 7.7 /CUMM (4.8-10.8)
--- NOTE | 2016-07-25 08:39 | PN- Att Addend ---
Attending Addendum Attending Brief Note Patient is chest pain-free this morning and has no other complaints General Appearance: Alert, No Acute Distress Skin: Grossly normal HEENT: PEERLA Neck: Supple, No JVD Cardiovascular: Regular Rate, Normal S1, Normal S2, No Murmurs Lungs: Clear to Auscultation, Normal Air Movement Abdomen: Normal Bowel Sounds, Soft, No Tenderness Neurological: Normal Speech, Strength at 5/5 X4 Ext, Cranial Nerves 3-12 NL, Reflexes 2+ Extremities: No Clubbing, No Cyanosis, No Edema Vascular: Normal Pulses Assessment Unstable angina currently on heparin drip for almost 48 hours and he is chest pain-free. Patient is requesting to be discharged today since it's a Father's Day. Plan was discussed with cardiology. In. He will be discharged home with outpatient follow-up with cardiology. Patient had a extensive cardiac evaluation including cardiac cath fall of 2015 which according to the family and the patient was negative. Plan May be discharged home once cleared by cardiology Continue other home meds Current Medications Sig/Levi Start time Last Medication Dose Route Stop Time Status Admin Aspirin Buffered 81 MG DAILY 07/23 1000 AC 07/24 PO 0931 Atenolol 50 MG BID 07/23 1000 AC 07/24 PO 2019 Atorvastatin Calcium 80 MG DAILY 07/23 1000 AC 07/24 PO 0931 Heparin Sodium/ 25,000 UNIT Q24H 07/23 1845 AC 07/24 Dextrose IV 1940 Dextrose/Water 500 ML Lisinopril 20 MG DAILY 07/23 1000 AC 07/24 PO 0931 Nitroglycerin 0.5 GM Q6P PRN 07/23 0500 [facility] Omeprazole 40 MG DAILY AC 07/23 0700 AC 07/25 PO 0529 Laboratory Tests 07/25 07/25 07/24 0615 0120 1830 Coagulation APTT (25 - 37 SEC) 65 H 103 *H Hematology CBC w Diff Pending WBC Pending RBC Pending Hgb Pending Hct Pending MCV Pending MCH Pending RDW Pending Plt Count Pending MPV Pending PUBS MCHC Pending Vital Signs Date Time Temp Pulse Resp B/P B/P Pulse O2 O2 Flow FiO2 Mean Ox Delivery Rate 07/25 0811 98.3 61 16 140/80 94 Room Air 07/24 2357 97.7 80 12 110/68 95 Room Air 07/24 2019 67 110/60 07/24 1539 98.6 70 20 104/70 95 07/24 0931 60 122/68 07/24 0931 60 122/68 07/24 0909 98.2 60 18 122/68 95 Room Air
--- NOTE | 2016-07-25 08:53 | PN-Observation ---
Observation Note Observation Note _ I have personally examined JAKUB BURROWS. him disposition is uncertain at this time. Before a determination can be made, he requires continued observation for the following reasons [unstable angina]. Assessment/Plan Assessment: Jakub is an 86 year old male with history of hypertension, dyslipidemia and coronary artery disease s/p CABG in 2005, presented with chief complaints of chest pressure radiating to his left arm associated with diaphoresis. Patient was started on heparin drip. There was no any overnight events in telemetry monitoring. Patient denies any actual chest pain, dyspnea on rest and exertion. He thinks his bilateral leg swelling has been decreased, which can be seen Objectively. Problem List: 1. 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 DVT/Prophylaxis: mechanical, early ambulation low risk Discharge Plan Discharge Disposition: home Subjective Follow-up For: Follow-up chest pain, rule out acute coronary syndrome Complaints: no complaints Tele-Events Since Last Visit: No any overnight events Subjective: Patient is seen and examined at the bedside. He was not having any active complaints. He denies any chest pain. Review of Systems Constitutional: Denies: no symptoms. Objective Last 24 Hrs of Vital Signs/I&O Vital Signs Date Time Temp Pulse Resp B/P B/P Pulse O2 O2 Flow FiO2 Mean Ox Delivery Rate 07/25 0957 60 140/80 07/25 0957 60 140/80 07/25 0811 98.3 61 16 140/80 94 Room Air 07/24 2357 97.7 80 12 110/68 95 Room Air 07/24 2019 67 110/60 Intake & Output 07/25 1600 07/25 0800 07/25 0000 Intake Total 320 480 Output Total Balance 320 480 Intake, IV 120 160 Intake, Oral 200 320 Number 0 Bowel Movements Physical Exam General Appearance: Alert, Oriented X3, Cooperative, No Acute Distress Cardiovascular: Normal S1, Normal S2 Lungs: Normal Air Movement, MILD BASILAR CRACKLES AND OCCASIONAL WHEEZING Abdomen: Soft, No Tenderness Neurological: Normal Speech Extremities: No Clubbing, No Cyanosis, DECREASED BILATERAL LEG EDEMA Vascular: Normal Pulses, Pulses Symmetrical
[2016-07-25 09:57] VITALS: BP 140/80
[2016-07-25] MEDS ORDERED: NITRO-DUR1 EAC3 PAT (10:25)
--- NOTE | 2016-07-25 10:37 | PN- Cardiology ---
Subjective Subjective: Feeling well. No further chest pain. No shortness of breath. No palpitations. No diaphoresis. Objective Vital Signs and I&Os Vital Signs Date Time Temp Pulse Resp B/P B/P Pulse O2 O2 Flow FiO2 Mean Ox Delivery Rate 07/25 0957 60 140/80 07/25 0957 60 140/80 07/25 0811 98.3 61 16 140/80 94 Room Air 07/24 2357 97.7 80 12 110/68 95 Room Air 07/24 2019 67 110/60 07/24 1539 98.6 70 20 104/70 95 Intake & Output 07/25 1600 07/25 0800 07/25 0000 07/24 1600 07/24 0800 07/24 0000 Intake Total 320 480 800 Output Total Balance 320 480 800 Intake, IV 120 160 800 Intake, Oral 200 320 Number 0 Bowel Movements Physical Exam: Gen: NAD HEENT: normal Lungs: clear to auscultation, normal resp. effort Heart: RRR, S1, S2, no murmurs Abdomen: Soft, nontender, no masses Extremities: No clubbing, cyanosis, or edema. Neuro: Alert and oriented x 3, cranial nerves intact Current Medications: Current Medications Sig/Levi Start time Last Medication Dose Route Stop Time Status Admin Aspirin Buffered 81 MG DAILY 07/23 1000 AC 07/25 PO 0957 Atenolol 50 MG BID 07/23 1000 AC 07/25 PO 0957 Atorvastatin Calcium 80 MG DAILY 07/23 1000 AC 07/25 PO 0957 Heparin Sodium/ 25,000 UNIT Q24H 07/23 1845 DC 07/24 Dextrose IV 1940 Dextrose/Water 500 ML Lisinopril 20 MG DAILY 07/23 1000 AC 07/25 PO 0957 Nitroglycerin 0.5 GM Q6P PRN 07/23 0500 AC TOP Omeprazole 40 MG DAILY AC 07/23 0700 AC 07/25 PO 0529 Assessment/Plan Assessment/Plan Assessment: 1. CAD, with remote history of CABG 2. Chest pain, ruled out for myocardial infarction. Possible unstable angina Plan: * Continue IV heparin * Continue aspirin * Continue statin * Discharge tomorrow if stable for further workup as outpatient Continue telemetry? No
== END 2016-07-25 11:20 ==
LOC: ERH 23:16 → ERHI 07-23 02:23 → ENRESERV 07-24 01:26 → 1NO 07-24 01:33 → ENPENDDIS 07-25 10:09 → 1NO 07-25 10:33
PROVIDERS: Emergency Medicine; Internal Medicine; Orthopaedic Surgery; Student in an Organized Health Care Education/Training Program; ADMIT Internal Medicine
DX: I25.110 Atherosclerotic heart disease of native coronary artery with unstable angina pectoris (principal); E78.5 Hyperlipidemia, unspecified; I10 Essential (primary) hypertension; Z95.1 Presence of aortocoronary bypass graft
CPT/HCPCS: 36415; 93005; 93010; 96372; 96374; 96376; G0378; J1644; J1650; J3490; J7060

== ENCOUNTER 2017-02-09 05:53 | Inpatient (IN) | payer OTHER, MEDICARE ==
[~2017-02-09] VITALS: Ht 172.7 cm; Wt 77.1 kg
[~2017-02-09 05:53] MED LIST changes: +ASPIRIN EC81 M1 PO; +ATENOLOL50 M1 PO; +ATORVASTATIN CA80 M1 PO; +LISINOPRIL20 M1 PO; +NITRO-DUR1 EAC3 PAT
--- NOTE | 2017-02-09 06:11 | ED AMS/SEIZURE/WEAK/DIZZY ---
See Addendum History of Present Illness General Chief Complaint: General Adult Stated Complaint: "NOT ABLE TO SLEEP,SHIVERS,SWEATY,WEAKNESS" Source: patient, family Exam Limitations: clinical condition, language barrier Vital Signs & Intake/Output Vital Signs & Intake/Output Vital Signs Date Time Temp Pulse Resp B/P B/P Pulse O2 O2 Flow FiO2 Mean Ox Delivery Rate 02/09 0632 92 Room Air Room Air 02/09 0608 99.1 112 16 182/115 92 Room Air Allergies Coded Allergies: NO KNOWN ALLERGIES (12/26/13) Reconcile Medications Aspirin (Ecotrin*) 81 MG TABLET.DR 1 TAB PO DAILY HEART HEALTH (Reported) Atenolol 50 MG TABLET 1 TAB PO BID BP (Reported) Atorvastatin Calcium 80 MG TABLET 1 TAB PO DAILY CHOLESTROL (Reported) Lisinopril 20 MG TABLET 1 TAB PO DAILY HTN (Reported) Nitroglycerin (Nitro-Dur) 0.4 MG/HOUR PATCH.TD24 1 PAT PAT Q24 PRN CHEST PAIN (Reported) Triage Note: 86YO MALE TO TRIAGE W/CO SHIVERS,CP,NAUSEA ALL NIGHT. RA SAT = 92 Triage Nurses Notes Reviewed? yes Onset: Gradual Duration: day(s):, getting worse, waxing and waning Timing: recent history Injury Environment: home Severity: moderate Modifying Factors: Improves With: rest. Associated Symptoms: cough, diaphoresis, chills HPI: 86 yo gentleman h/o cabg 14 years ago, presents with chills, rigors, dyspnea, diaphoresis, left sided chest pain, that began last night. His son notes that he has been outside at a niece's . He has had decreased oral intake, nausea, but no vomiting or diarrhea. His chest pain is mostly across his left chest, non radiating, not reproducible. Past History Travel History Traveled to [place] past 21 day No Medical History Any Pertinent Medical History? 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 No Review of Systems Review of Systems Constitutional: Reports: no symptoms. EENTM: Reports: no symptoms. Respiratory: Reports: no symptoms. Cardiovascular: Reports: no symptoms. GI: Reports: no symptoms. Genitourinary: Reports: no symptoms. Musculoskeletal: Reports: no symptoms. Skin: Reports: no symptoms. Neurological/Psychological: Reports: no symptoms. Hematologic/Endocrine: Reports: no symptoms. Immunologic/Allergic: Reports: no symptoms. All Other Systems: Reviewed and Negative Physical Exam Physical Exam General Appearance: well developed/nourished, awake, mild distress, moderate distress, TIRED APPEARING Head: atraumatic, normal appearance Eyes: Bilateral: normal appearance. Ears, Nose, Throat: normal pharynx, normal ENT inspection Neck: normal inspection, supple, full range of motion Respiratory: DIMINISHED BREATH SOUNDS AT BASES Cardiovascular: regular rate/rhythm Gastrointestinal: normal bowel sounds, soft, non-tender, no organomegaly Back: normal inspection, normal range of motion Extremities: normal range of motion Neurologic/Psych: no motor/sensory deficits, awake, alert, oriented x 3 Skin: intact, normal color, warm/dry Core Measures ACS in differential dx? No CVA/TIA Diagnosis No Sepsis Present: No Sepsis Focused Exam Completed? No Progress Differential Diagnosis: dehydration, electrolyte imbalance, hypoxia, sepsis, UTI /pyelo, PNEUMONIA VS OTHER Plan of Care: Orders Procedure Date/time Status LACTIC ACID 02/09 0913 Active BLOOD CULTURE 02/09 0615 Active LACTIC ACID 02/09 0613 Active CULTURE,URINE 02/09 0612 Active BLOOD CULTURE 02/09 0612 Active URINALYSIS 02/09 0612 Active XRY-CHEST XRAY, TWO VIEWS 02/09 0611 Active TROPONIN LEVEL 02/09 0611 Active PARTIAL THROMBOPLASTIN TIME 02/09 0611 Active PROTHROMBIN TIME 02/09 0611 Active LIPASE 02/09 0611 Active HEPATIC FUNCTION PANEL 02/09 0611 Active CBC WITHOUT DIFFERENTIAL 02/09 0611 Active BASIC METABOLIC PANEL 02/09 0611 Active AMYLASE 02/09 0611 Active EKG 02/09 0611 Active Current Medications Sig/Levi Start time Last Medication Dose Stop Time Status Admin Azithromycin 500 MG ONCE ONE 02/09 0700 UNVr (Zithromax) 02/09 0759 Sodium Chloride 250 ML (Normal Saline 0.9%) Ceftriaxone Sodium 1,000 MG ONCE ONE 02/09 0700 UNVr (Rocephin) 02/09 0701 Sodium Chloride 1,000 ML BOLUS ONE 02/09 0615 AC 02/09 (Normal Saline 0.9%) 02/09 0714 0628 Laboratory Tests 02/09/17 0620: Lactic Acid Pending 02/09/17 0620: Sodium Pending, Potassium Pending, Chloride Pending, Carbon Dioxide Pending, Anion Gap Pending, BUN Pending, Creatinine Pending, BUN/Creatinine Ratio Pending , Glucose Pending, Calcium Pending, Total Bilirubin Pending, Direct Bilirubin Pending, AST Pending, ALT Pending, Alkaline Phosphatase Pending, Troponin I Pending, Total Protein Pending, Albumin Pending, Amylase Pending, Lipase Pending , PT Pending, INR Pending, APTT Pending, CBC w Diff Pending, WBC Pending, RBC Pending, Hgb Pending, Hct Pending, MCV Pending, MCH Pending, RDW Pending, Plt Count Pending, MPV Pending, Gran % Pending, Lymphocytes % Pending, Monocytes % Pending, Eosinophils % Pending, Basophils % Pending, Absolute Granulocytes Pending, Absolute Lymphocytes Pending, Absolute Monocytes Pending, Absolute Eosinophils Pending, Absolute Basophils Pending, PUBS MCHC Pending Microbiology 02/09 614 BLOOD: Blood Culture - ORD 02/09 611 URINE ROUT: Urine Culture - ORD 02/09 611 BLOOD: Blood Culture - ORD Diagnostic Imaging: Viewed by Me: Radiology Read. Discussed w/RAD: Radiology Read. Initial ED EKG: normal axis, normal intervals, normal p-waves, normal QRS complex, normal sinus rhythm Hand-Off Endorsed To: Zafar Bonds MD Endorsed Time: 0700 Pending: labs, other, Xray (DISPO) Departure Departure Disposition: STILL A PATIENT Condition: Stable Clinical Impression Primary Impression: Weakness Secondary Impressions: Pneumonia Referrals: Juan Lutz MD (PCP/Family) Departure Forms: Customer Survey General Discharge Information Comments 02/09/17, 6:50am... pt with hypoxia to 89-91% on room air. cxr abnormal... most suggestive of pneumonia... await official read, lab results. pt will merit admission. pt signed out to dr. bonds at 7am.
[2017-02-09 06:36] LABS: ABSOLUTE BASOPHIL COUNT 0 /CUMM (0.0-0.2); ABSOLUTE EOSINOPHIL COUNT 0.2 /CUMM (0.0-0.7); ABSOLUTE GRANULOCYTE CT 9.1 /CUMM (1.4-6.5); ABSOLUTE LYMPH COUNT 1.1 /CUMM (1.2-3.4); ABSOLUTE MONOCYTE COUNT 0.6 /CUMM (0.10-0.60); BASOPHIL % 0.2 % (0.0-2.0); EOSINOPHIL % 1.5 % (0-5); GRANULOCYTE % 83.2 % (42.2-75.2); MEAN CORPUSCULAR HGB 29.7 PG (27.0-31.0); MEAN CORPUSCULAR HGB CONC 33.7 G/DL (33.0-37.0); MEAN CORPUSCULAR VOLUME 87.9 FL (80.0-94.0); MEAN PLATELET VOLUME 8.8 FL (7.4-10.4); RBC DISTRIBUTION WIDTH 13.5 % (11.5-14.5); RED BLOOD CELL CT 5.23 /CUMM (4.70-6.10); WHITE BLOOD CELL COUNT 10.9 /CUMM (4.8-10.8)
[2017-02-09 06:51] LABS: PLATELET COUNT 193 /CUMM (130-400)
--- NOTE | 2017-02-09 06:56 | RADIOLOGY REPORT ---
EXAMINATION: XR CHEST CLINICAL INFORMATION: Dyspnea and hypoxia. COMPARISON: Chest radiograph dated 07/22/2016. TECHNIQUE: 2 views of the chest were obtained. FINDINGS: There is diffuse interstitial prominence relative to the comparison exam. Some superimposed patchy airspace opacity is noted in the right upper lobe. No pleural effusion. No pneumothorax. Stable post sternotomy appearance of the cardiac mediastinal silhouette. No acute osseous abnormalities. Evaluation of the thoracic spine is markedly limited. IMPRESSION: 1. Diffuse interstitial prominence relative to the comparison exam suspicious for pulmonary venous congestion. 2. Superimposed patchy airspace opacity in the right upper lobe could represent underlying pneumonia in the appropriate clinical setting. An alveolar component of pulmonary edema is also a differential consideration.
[2017-02-09 07:00] LABS: PTT 30 SEC (25-37)
--- NOTE | 2017-02-09 09:14 | History & Physical ---
See Addendum General Information and HPI MD Statement: I have seen and personally examined JAKUB BURROWS and documented this H&P. The patient is a 86 year old M who presented with a patient stated chief complaint of [chest pain and chills]. Source of Information: patient, family Exam Limitations: no limitations History of Present Illness: Mr. Burrows is 86-year-old male with PMH of CAD s/p CABG in 2002, HTN, HLD who presented to ED with chief complain of chills and non-productive cough. Patient reported that he spent the whole day yesterday outside in cold air for a family , after he returned home started to feel tired and around 1:30 AM he had chills with no fever, ongoing to Tylenol all productive cough of yellow sputum no blood for day or day and a half, left side chest pain not radiating mostly with cough. Denied any shortness of breath, palpitation, history of sick contact. Patient denied nasal congestion, ear pain or sinus pain, however reported headache and blurry vision. Patient received flu vaccine and pneumonia vaccine last month. Allergies/Medications Allergies: Coded Allergies: NO KNOWN ALLERGIES (12/26/13) Home Med list Aspirin (Ecotrin*) 81 MG TABLET.DR 1 TAB PO DAILY HEART HEALTH (Reported) Atenolol 50 MG TABLET 1 TAB PO BID BP (Reported) Atorvastatin Calcium 80 MG TABLET 1 TAB PO DAILY CHOLESTROL (Reported) Lisinopril 20 MG TABLET 1 TAB PO DAILY HTN (Reported) Nitroglycerin (Nitro-Dur) 0.4 MG/HOUR PATCH.TD24 1 PAT PAT Q24 PRN CHEST PAIN (Reported) Past History Travel History Traveled to [place] past 21 day No Medical History Neurological: NONE EENT: NONE Cardiovascular: CAD, hypertension, hyperlipidemia Respiratory: NONE Gastrointestinal: NONE Hepatic: NONE Renal: NONE Musculoskeletal: NONE Psychiatric: NONE Endocrine: NONE Blood Disorders: NONE Cancer(s): NONE 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 Denies: fever. EENTM: Denies: blurred vision, nasal congestion, nasal pain, throat pain. Cardiovascular: Reports: chest pain. Denies: orthopena, palpitations. Respiratory: Reports: cough, sputum production. Denies: orthopnea, short of breath, stridor, wheezing. GI: Denies: abdominal pain, constipation, nausea, vomiting. Genitourinary: Denies: dysuria, frequency. Musculoskeletal: Reports: joint pain, muscle pain. Skin: Denies: rash. Exam & Diagnostic Data Last 24 Hrs of Vital Signs/I&O Vital Signs Date Time Temp Pulse Resp B/P B/P Pulse O2 O2 Flow FiO2 Mean Ox Delivery Rate 02/09 1540 98.6 90 18 136/67 91 Room Air 02/09 1127 99 122/74 02/09 1127 99 122/77 02/09 1116 99.1 99 20 122/61 95 Nasal 2.0L Cannula 02/09 0848 99.9 02/09 0754 101.8 02/09 0746 101.8 02/09 0745 101.8 104 20 137/78 96 Nasal 2.0L Cannula 02/09 0651 101 16 161/85 95 Nasal 2.0L Cannula 02/09 0632 92 Room Air Room Air 02/09 0608 99.1 112 16 182/115 92 Room Air Intake & Output 02/09 1600 02/09 0800 02/09 0000 Intake Total 1000 Output Total Balance 1000 Intake, IV 1000 Patient 77.111 kg Weight Physical Exam General Appearance Alert, Oriented X3, Cooperative, No Acute Distress Skin No Rashes Skin Temp/Moisture Exam: Warm/Dry HEENT Atraumatic, PERRLA, EOMI, Mucous Membr. moist/pink Neck Supple, No JVD, no cervical lymphadenopathy Cardiovascular Regular Rate, Normal S1, Normal S2, No Murmurs Lungs Clear to Auscultation, Normal Air Movement Abdomen Normal Bowel Sounds, Soft, No Tenderness Neurological Normal Gait, Normal Speech, Normal Tone, Sensation Intact, Cranial Nerves 3-12 NL, Reflexes 2+ Extremities No Clubbing, No Cyanosis, No Edema, Normal Pulses, No Tenderness/ Swelling Assessment/Plan Assessment: Mr. Burrows is 86-year-old male with PMH of CAD s/p CABG in 2002, HTN, HLD who presented to ED with chief complain of chills and non-productive cough. On admission vital signs temperature 99.1, pulse 112, blood pressure 182/115, respiratory rate 16 saturating 92% on room air Labs significant for white blood cell 10.9, H&H 15.5/46, electrolytes within normal, bicarbonate 25, lactic acid 2.5 Chest x-ray revealed diffuse interstitial prominence with superimposed patchy air space opacity in right upper lobe that could represent pneumonia Problem list #Community acquired pneumonia Patient presented with history of chills, productive cough after exposure to cold air, no history of sick contact. Flu rapid test is negative for influenza A or once up E. Chest x-ray revealed right upper lobe opacity that may represent underlying pneumonia. No signs of spesis -Admit patient to general medical floor -Continue azithromycin and Cipro drags on for community acquired pneumonia -Obtain urine legionella and streptococcus pneumonia antigen -Follow blood culture -CBC and BMP in a.m. -TRC -I/O -vital Q shift #Lactic acidosis mostly due to the infection and dehydration given decreased oral intake -IV fluid D5 half-normal 1 L running at 75 mL/h -Repeat lactic acid until resolved #History of chest pain with no radiation and no history of palpitation, shortness of breath I don't think this pain represent cardiogenic pathology as 6 hours after onset of symptoms troponin was negative with no EKG changes. Signs of volume overload. We'll continue home medication DVT prophylaxis ALPS , Lovenox Diet heart healthy Code full As Ranked By This Provider Problem List: 1. Pneumonia Core Measures/Misc (10/24) Acute Coronary Syndrome ACS Diagnosis: No Congestive Heart Failure Congestive Heart Failure Diagnosis No Cerebrovascular Accident CVA/TIA Diagnosis: No VTE (View Protocol) VTE Risk Factors Acute Medical Illness No Mechanical VTE Prophylaxis d/t N/A MechProphylax Ordered No VTE Pharm Prophylaxis d/t NA PharmProphylax ordered Sepsis (View protocol) Sepsis Present: No
--- NOTE | 2017-02-09 10:04 | Admission Certification ---
Admission Certification Certification Statement - As attending physician, I certify that at the time of - admission, based on clinical presentation, severity of - symptoms, need for further diagnostic testing and - therapeutic interventions, and risk of adverse outcomes - without in-hospital treatment, in my clinical assessment, - this patient requires an acute hospital stay for a minimum - of two nights or longer. I have also considered psychsocial - factors such as support system, advanced age, financial - issues, cognitive issues, and failed out-patient treatments, - past re-admission history, safety of patient, and lack of - compliance as applicable. Specific rationale supporting this admission is: Pneumonia.
--- NOTE | 2017-02-09 10:07 | PN- Att Addend ---
Attending Addendum Attending Brief Note 86-year-old white male not feeling well for the last couple of days. Was outside in the cold her for 1 day chills weakness not feeling well, was brought to the emergency room, in the emergency room the patient had a low-grade temperature, was a little flushed x-ray showed evidence of acute pneumonia and has been eating or drinking much in the last few days either patient was given IV antibiotics after the cultures were obtained, also blood work obtained his troponin was negative no evidence of acute hard injury. Vital Signs Date Time Temp Pulse Resp B/P B/P Pulse O2 O2 Flow FiO2 Mean Ox Delivery Rate 02/09 0848 99.9 02/09 0754 101.8 02/09 0746 101.8 02/09 0745 101.8 104 20 137/78 96 Nasal 2.0L Cannula 02/09 0651 101 16 161/85 95 Nasal 2.0L Cannula 02/09 0632 92 Room Air Room Air 02/09 0608 99.1 112 16 182/115 92 Room Air Intake & Output 02/09 1600 02/09 0800 02/09 0000 Intake Total 1000 Output Total Balance 1000 Intake, IV 1000 Patient 170 lb Weight Laboratory Tests 02/09 02/09 02/09 0920 0719 0620 Chemistry Lactic Acid (0.7 - 2.1 mmol/L) Pending 2.5 H Urines Urine Color (YEL,AMB,STR) YEL Urine Clarity (CLEAR) CLEAR Urine pH (5.0 - 8.0) 6.0 Ur Specific [place] (1.001 - 1.035) 1.020 Urine Protein (NEG,<30 MG/DL) NEG Urine Ketones (NEG) NEG Urine Nitrite (NEG) NEG Urine Bilirubin (NEG) NEG Urine Urobilinogen (0.1 - 1.0 EU/dl) 0.2 Ur Leukocyte Esterase (NEG) NEG Ur Microscopic SEDIMENT EXAMINED Urine RBC (0 - 5 /HPF) 10-15 H Urine WBC (0 - 2 /HPF) RARE Ur Epithelial Cells (NONE,FEW) FEW Urine Bacteria (NEG/NONE) FEW H Urine Mucus (FEW,NONE) FEW Urine Hemoglobin (NEG) MOD H Urine Glucose (N MG/DL) NEG 02/09 0620 Chemistry Sodium (137 - 145 mmol/L) 142 Potassium (3.5 - 5.1 mmol/L) 4.2 Chloride (98 - 107 mmol/L) 104 Carbon Dioxide (22 - 30 mmol/L) 25 Anion Gap (5 - 16) 13 BUN (9 - 20 mg/dL) 14 Creatinine (0.7 - 1.2 mg/dL) 0.9 Estimated GFR (>60 ml/min) > 60 BUN/Creatinine Ratio (7 - 25 %) 15.6 Glucose (65 - 99 mg/dL) 110 H Calcium (8.4 - 10.2 mg/dL) 9.1 Total Bilirubin (0.2 - 1.3 mg/dL) 1.2 Direct Bilirubin (< 0.4 mg/dL) 0.3 AST (17 - 59 U/L) 27 ALT (21 - 72 U/L) 38 Alkaline Phosphatase (< 127 U/L) 79 Troponin I (<0.11 ng/ml) 0.01 Total Protein (6.3 - 8.2 g/dL) 7.1 Albumin (3.5 - 5.0 g/dL) 4.1 Amylase (30 - 110 U/L) 77 Lipase (23 - 300 U/L) 236 Coagulation PT (9.4 - 12.5 SEC) 12.0 INR (0.90 - 1.17) 1.14 APTT (25 - 37 SEC) 30 Hematology CBC w Diff NO MAN DIFF REQ WBC (4.8 - 10.8 /CUMM) 10.9 H RBC (4.70 - 6.10 /CUMM) 5.23 Hgb (14.0 - 18.0 G/DL) 15.5 Hct (42 - 52 %) 46.0 MCV (80.0 - 94.0 FL) 87.9 MCH (27.0 - 31.0 PG) 29.7 RDW (11.5 - 14.5 %) 13.5 Plt Count (130 - 400 /CUMM) 193 MPV (7.4 - 10.4 FL) 8.8 Gran % (42.2 - 75.2 %) 83.2 H Lymphocytes % (20.5 - 51.1 %) 9.7 L Monocytes % (1.7 - 9.3 %) 5.4 Eosinophils % (0 - 5 %) 1.5 Basophils % (0.0 - 2.0 %) 0.2 Absolute Granulocytes (1.4 - 6.5 /CUMM) 9.1 H Absolute Lymphocytes (1.2 - 3.4 /CUMM) 1.1 L Absolute Monocytes (0.10 - 0.60 /CUMM) 0.6 Absolute Eosinophils (0.0 - 0.7 /CUMM) 0.2 Absolute Basophils (0.0 - 0.2 /CUMM) 0 PUBS MCHC (33.0 - 37.0 G/DL) 33.7
[2017-02-09 20:09] VITALS: BP 132/70
[2017-02-10 06:42] VITALS: BP 130/70
[2017-02-10 08:07] LABS: ABSOLUTE BASOPHIL COUNT 0 /CUMM (0.0-0.2); ABSOLUTE EOSINOPHIL COUNT 0.1 /CUMM (0.0-0.7); ABSOLUTE LYMPH COUNT 0.5 /CUMM (1.2-3.4); ABSOLUTE MONOCYTE COUNT 0.5 /CUMM (0.10-0.60); BASOPHIL % 0.3 % (0.0-2.0); EOSINOPHIL % 0.4 % (0-5); HEMATOCRIT 41.8 % (42-52); MEAN CORPUSCULAR HGB 29.7 PG (27.0-31.0); MEAN CORPUSCULAR VOLUME 87.5 FL (80.0-94.0); MEAN PLATELET VOLUME 9.6 FL (7.4-10.4); RBC DISTRIBUTION WIDTH 14.2 % (11.5-14.5); RED BLOOD CELL CT 4.77 /CUMM (4.70-6.10)
[2017-02-10 08:54] LABS: PLATELET COUNT 147 /CUMM (130-400)
[2017-02-10 08:55] LABS: GRANULOCYTE % 91.8 % (42.2-75.2); WHITE BLOOD CELL COUNT 13.9 /CUMM (4.8-10.8)
--- NOTE | 2017-02-10 12:25 | PN- Att Addend ---
Attending Addendum Attending Brief Note Patient in bed oxygen on. Nurse drawing blood to recheck potassium and magnesium that have been abnormal and been replaced Temp max 102.6. The rest of the vital signs are stable with no major changes on physical. We'll continue to monitor his blood work continue total respiratory care oxygen and IV antibiotic therapy. 24 TOTALS 02/10 0000 02/09 0000 Intake Total 1700 Output Total Balance 1700 Intake, IV 1400 Intake, Oral 300 Patient 170 lb Weight Weight Reported by Patient Measurement Method Current Medications Sig/Levi Start time Last Medication Dose Route Stop Time Status Admin Acetaminophen 650 MG Q6P PRN 02/09 0900 AC PO Acetaminophen 1,000 MG Q6P PRN 02/09 0900 AC 02/09 IV 2005 Aspirin Buffered 81 MG DAILY 02/09 1000 AC 02/10 PO 0953 Atenolol 50 MG BID 02/09 1000 AC 02/10 PO 0952 Atorvastatin Calcium 80 MG 1700 02/09 1700 AC PO Azithromycin 500 MG DAILY 02/10 1000 AC 02/10 Sodium Chloride 250 ML IV 0952 Ceftriaxone Sodium 1,000 MG DAILY 02/10 1000 AC 02/10 IV 0954 Dextrose/Sodium 1,000 ML .[id number] 02/09 0900 DC 02/09 Chloride IV 02/09 2219 1139 Enoxaparin Sodium 40 MG DAILY 02/09 1000 AC 02/10 SC 0952 Ibuprofen 600 MG Q6P PRN 02/09 0900 AC PO Lisinopril 20 MG DAILY 02/09 1000 AC 02/10 PO 0952 Nitroglycerin 0.4 MG DAILY 02/09 1200 AC 02/10 TOP 0951 Potassium Chloride 10 MEQ ONCE ONE 02/10 1000 CAN IV 02/10 1001 Potassium Chloride 40 MEQ ONCE ONE 02/10 1000 DC 02/10 PO 02/10 1001 1006 Laboratory Tests 02/10/17 1200: Sodium Pending, Potassium Pending, Chloride Pending, Carbon Dioxide Pending, Anion Gap Pending, BUN Pending, Creatinine Pending, BUN/Creatinine Ratio Pending , Magnesium Pending 02/10/17 0635: Anion Gap 8, Estimated GFR > 60, BUN/Creatinine Ratio 15.0, Magnesium 1.3 L, CBC w Diff NO MAN DIFF REQ, RBC 4.77, MCV 87.5, MCH 29.7, RDW 14.2, MPV 9.6, Gran % 91.8 H, Lymphocytes % 3.7 L, Monocytes % 3.8, Eosinophils % 0.4, Basophils % 0.3, Absolute Granulocytes 12.0 H, Absolute Lymphocytes 0.5 L, Absolute Monocytes 0.5, Absolute Eosinophils 0.1, Absolute Basophils 0, PUBS MCHC 34.0 02/09/17 0920: Lactic Acid 2.0 02/09/17 0813: Virus Culture Pending 02/09/17 0719: Urine Color YEL, Urine Clarity CLEAR, Urine pH 6.0, Ur Specific [place] 1.020, Urine Protein NEG, Urine Ketones NEG, Urine Nitrite NEG, Urine Bilirubin NEG, Urine Urobilinogen 0.2, Ur Leukocyte Esterase NEG, Ur Microscopic SEDIMENT EXAMINED, Urine RBC 10-15 H, Urine WBC RARE, Ur Epithelial Cells FEW, Urine Bacteria FEW H, Urine Mucus FEW, Urine Hemoglobin MOD H, Urine Glucose NEG 02/09/17 0620: Lactic Acid 2.5 H 02/09/17 0620: Anion Gap 13, Estimated GFR > 60, BUN/Creatinine Ratio 15.6, Glucose 110 H, Calcium 9.1, Total Bilirubin 1.2, Direct Bilirubin 0.3, AST 27, ALT 38, Alkaline Phosphatase 79, Troponin I 0.01, Total Protein 7.1, Albumin 4.1, Amylase 77, Lipase 236, PT 12.0, INR 1.14, APTT 30, CBC w Diff NO MAN DIFF REQ, RBC 5.23, MCV 87.9, MCH 29.7, RDW 13.5, MPV 8.8, Gran % 83.2 H, Lymphocytes % 9.7 L, Monocytes % 5.4, Eosinophils % 1.5, Basophils % 0.2, Absolute Granulocytes 9.1 H, Absolute Lymphocytes 1.1 L, Absolute Monocytes 0.6, Absolute Eosinophils 0.2 , Absolute Basophils 0, PUBS MCHC 33.7 Microbiology 02/10 812 NASOPHARYN: Influenza Virus A & B Rapid Smear - COMP Vital Signs Date Time Temp Pulse Resp B/P B/P Pulse O2 O2 Flow FiO2 Mean Ox Delivery Rate 02/11 0852 84 132/68 02/10 09 84 132/68 02/10 0921 Room Air Room Air 02/10 0642 98.5 95 20 130/70 98 Room Air 02/09 2321 95 132/70 02/09 2213 99.8 02/09 2030 Room Air 02/10 2008 102.6 95 20 132/70 90 Room Air 02/10 2004 102.6 02/09 1755 102.6 104 16 106/53 91 Room Air 02/09 1540 98.6 90 18 136/67 91 Room Air
[2017-02-10 14:39] VITALS: BP 140/76
--- NOTE | 2017-02-10 14:50 | PN- Housestaff ---
See Addendum Subjective Follow-up For: CAP Subjective: Patient seen and examined. Reports dyspnea and cough however improved compared to admission. Denies CP, N/V/abd pain, urinary symptoms. Fever of 100.9 today. UC Gr neg rods BC negx2 leg and pneu urine neg Review of Systems Constitutional: Reports: see HPI. Objective Last 24 Hrs of Vital Signs/I&O Vital Signs Date Time Temp Pulse Resp B/P B/P Pulse O2 O2 Flow FiO2 Mean Ox Delivery Rate 02/10 2053 85 126/80 02/10 1600 92 Room Air 02/10 1439 100.9 93 20 140/76 92 Room Air 02/10 0952 84 132/68 02/10 0952 84 132/68 02/10 0921 Room Air Room Air 02/10 0800 91 Room Air Room Air 02/10 0642 98.5 95 20 130/70 98 Room Air 02/09 2321 95 132/70 Intake & Output 02/10 1600 02/10 0800 02/10 0000 Intake Total 970 240 700 Output Total 400 Balance 570 240 700 Intake, IV 250 400 Intake, Oral 720 240 300 Output, Urine 400 Patient 170 lb Weight Weight Reported by Patient Measurement Method Physical Exam General Appearance: Alert, Oriented X3, Cooperative, No Acute Distress Skin: No Rashes HEENT: Atraumatic, PERRLA, EOMI, Mucous Membr. moist/pink Cardiovascular: Regular Rate, Normal S1, Normal S2, No Murmurs, Gallops, Rubs Lungs: Clear to Auscultation, Normal Air Movement Abdomen: Normal Bowel Sounds, Soft, No Tenderness, No Hepatospenomegaly, No Masses Extremities: No Clubbing, No Cyanosis, No Edema, Normal Pulses, No Tenderness/ Swelling Current Medications: Current Medications Sig/Levi Start time Last Medication Dose Route Stop Time Status Admin Acetaminophen 1,000 MG .STK-MED ONE 02/10 526 DC IV 02/10 527 Acetaminophen 650 MG Q6P PRN 02/09 09 AC PO Acetaminophen 1,000 MG Q6P PRN 02/09 0900 AC 02/09 IV 2004 Aspirin Buffered 81 MG DAILY 02/09 1000 AC 02/10 PO 0953 Atenolol 50 MG BID 02/09 1000 AC 02/10 PO 2053 Atorvastatin Calcium 80 MG 1700 02/09 1700 AC 02/10 PO 1707 Azithromycin 500 MG DAILY 02/10 1000 AC 02/10 Sodium Chloride 250 ML IV 0952 Ceftriaxone Sodium 1,000 MG DAILY 02/10 1000 AC 02/10 IV 0954 Enoxaparin Sodium 40 MG DAILY 02/09 1000 AC 02/10 SC 0952 Ibuprofen 600 MG Q6P PRN 02/09 0900 AC PO Lisinopril 20 MG DAILY 02/09 1000 AC 02/10 PO 0952 Nitroglycerin 0.4 MG DAILY 02/09 1200 AC 02/10 TOP 0951 Potassium Chloride 40 MEQ ONCE ONE 02/10 1500 DC 02/10 PO 02/10 1501 1508 Potassium Chloride 10 MEQ ONCE ONE 02/10 1000 CAN IV 02/10 1001 Potassium Chloride 40 MEQ ONCE ONE 02/10 1000 DC 02/10 PO 02/10 1001 1006 Last 24 Hrs of Lab/Felix Results Last 24 Hrs of Labs/Mics: Laboratory Tests 02/10/17 1200: Anion Gap 12, Estimated GFR > 60, BUN/Creatinine Ratio 15.0, Magnesium 1.8 02/10/17 0635: Anion Gap 8, Estimated GFR > 60, BUN/Creatinine Ratio 15.0, Magnesium 1.3 L, CBC w Diff NO MAN DIFF REQ, RBC 4.77, MCV 87.5, MCH 29.7, RDW 14.2, MPV 9.6, Gran % 91.8 H, Lymphocytes % 3.7 L, Monocytes % 3.8, Eosinophils % 0.4, Basophils % 0.3, Absolute Granulocytes 12.0 H, Absolute Lymphocytes 0.5 L, Absolute Monocytes 0.5, Absolute Eosinophils 0.1, Absolute Basophils 0, PUBS MCHC 34.0 Assessment/Plan Assessment: Mr. Guillen is 86-year-old male with PMH of CAD s/p CABG in 2002, HTN, HLD who presented to ED with chief complain of chills and non-productive cough. On admission vital signs temperature 99.1, pulse 112, blood pressure 182/115, respiratory rate 16 saturating 92% on room air Labs significant for white blood cell 10.9, H&H 15.5/46, electrolytes within normal, bicarbonate 25, lactic acid 2.5 Chest x-ray revealed diffuse interstitial prominence with superimposed patchy air space opacity in right upper lobe that could represent pneumonia Problem list #Community acquired pneumonia Patient presented with history of chills, productive cough after exposure to cold air, no history of sick contact. Flu rapid test is negative for influenza A or infant once up E. Chest x-ray revealed right upper lobe opacity that may represent underlying pneumonia. No signs of spesis - -Continue azithromycin and Ceftriaxone for community acquired pneumonia -TRC -I/O -vital Q shift #Lactic acidosis mostly due to the infection and dehydration given decreased oral intake -IV fluid D5 half-normal 1 L running at 75 mL/h - resolved #Hypokalemia; -Repleted #History of chest pain with no radiation and no history of palpitation, shortness of breath I don't think this pain represent cardiogenic pathology as 6 hours after onset of symptoms troponin was negative with no EKG changes. Signs of volume overload. We'll continue home medication DVT prophylaxis ALPS , Lovenox Diet heart healthy Code full Problem List: 1. Pneumonia Pain Ratin Pain Location: NA Pain Goal: Remain pain free Pain Plan: NA Tomorrow's Labs & Rationales: BEP to monitor electrolytes CBC to monitor WBC
[2017-02-10 22:00] VITALS: BP 126/80
[2017-02-11 06:35] VITALS: BP 138/80
--- NOTE | 2017-02-11 08:14 | PN- Housestaff ---
Subjective Follow-up For: CAP Subjective: Patient seen and examined. Still reports dyspnea and cough not changed from yesterday Denies CP, N/V/abd pain, urinary symptoms. Afebrile overnight UC positive for pseudomonas BC negx2 leg and pneu urine neg Review of Systems Constitutional: Reports: see HPI. Objective Last 24 Hrs of Vital Signs/I&O Vital Signs Date Time Temp Pulse Resp B/P B/P Pulse O2 O2 Flow FiO2 Mean Ox Delivery Rate 02/11 2216 98.6 69 18 128/64 93 Room Air 02/11 2049 69 128/64 02/11 1436 98.3 73 18 112/78 92 Room Air 02/11 1010 84 118/62 02/11 1000 84 118/62 02/11 0800 92 Room Air Room Air 02/11 0635 98.7 81 18 138/80 91 Room Air 02/11 0000 Room Air Intake & Output 02/11 1600 02/11 0800 02/11 0000 Intake Total 720 600 Output Total 400 200 300 Balance 320 -200 300 Intake, Oral 720 600 Output, Urine 400 200 300 Physical Exam General Appearance: Alert, Oriented X3, Cooperative, No Acute Distress Other Physical Findings: Skin: No Rashes HEENT: Atraumatic, PERRLA, EOMI, Mucous Membr. moist/pink Cardiovascular: Regular Rate, Normal S1, Normal S2, No Murmurs, Gallops, Rubs Lungs: Clear to Auscultation, Normal Air Movement Abdomen: Normal Bowel Sounds, Soft, No Tenderness, No Hepatospenomegaly, No Masses Extremities: No Clubbing, No Cyanosis, No Edema, Normal Pulses, No Tenderness/ Swelling Current Medications: Current Medications Sig/Levi Start time Last Medication Dose Route Stop Time Status Admin Acetaminophen 650 MG Q6P PRN 02/09 09 AC PO Acetaminophen 1,000 MG Q6P PRN 02/09 0900 AC 02/09 IV 2005 Aspirin Buffered 81 MG DAILY 02/09 1000 AC 02/11 PO 101 Atenolol 50 MG BID 02/09 1000 AC 02/11 PO 204 Atorvastatin Calcium 80 MG 1700 02/09 1700 AC 02/11 PO 1637 Azithromycin 500 MG DAILY 02/10 1000 AC 02/11 Sodium Chloride 250 ML IV 1011 Ceftriaxone Sodium 1,000 MG DAILY 02/10 1000 AC 02/11 IV 1010 Enoxaparin Sodium 40 MG DAILY 02/09 1000 AC 02/11 SC 1010 Ibuprofen 600 MG Q6P PRN 02/09 0900 AC PO Lisinopril 20 MG DAILY 02/09 1000 AC 02/11 PO 1010 Nitroglycerin 0.4 MG DAILY 02/09 1200 AC 02/11 TOP 1011 Patient Medication 1 ED ONE ONE 02/11 1530 [facility] ED 02/11 1531 Last 24 Hrs of Lab/Felix Results Last 24 Hrs of Labs/Mics: Laboratory Tests 02/11/17 0844: Anion Gap 8, Estimated GFR > 60, BUN/Creatinine Ratio 13.8 02/11/17 0835: CBC w Diff NO MAN DIFF REQ, RBC 4.81, MCV 87.7, MCH 29.9, RDW 14.1, MPV 9.0, Gran % 75.1, Lymphocytes % 14.3 L, Monocytes % 9.3, Eosinophils % 1.1, Basophils % 0.2, Absolute Granulocytes 4.8, Absolute Lymphocytes 0.9 L, Absolute Monocytes 0.6, Absolute Eosinophils 0.1, Absolute Basophils 0, PUBS MCHC 34.1 Microbiology 02/11 1150 BLOOD: Blood Culture - RECD 02/11 1115 BLOOD: Blood Culture - RECD 02/11 1045 LOWER RESP: Respiratory Culture - RES 02/11 1045 LOWER RESP: Gram Stain - RES 02/11 1010 URINE ROUT: Urine Culture - COLB Assessment/Plan Assessment: Mr. Guillen is 86-year-old male with PMH of CAD s/p CABG in 2002, HTN, HLD who presented to ED with chief complain of chills and non-productive cough. On admission vital signs temperature 99.1, pulse 112, blood pressure 182/115, respiratory rate 16 saturating 92% on room air Labs significant for white blood cell 10.9, H&H 15.5/46, electrolytes within normal, bicarbonate 25, lactic acid 2.5 Chest x-ray revealed diffuse interstitial prominence with superimposed patchy air space opacity in right upper lobe that could represent pneumonia Problem list #Community acquired pneumonia Patient presented with history of chills, productive cough after exposure to cold air, no history of sick contact. Flu rapid test is negative for influenza A or infant once up E. Chest x-ray revealed right upper lobe opacity that may represent underlying pneumonia. No signs of spesis -Repeat BC after fever -Sputum culture pending -Continue azithromycin and Ceftriaxone for community acquired pneumonia -TRC -I/O -vital Q shift #Lactic acidosis mostly due to the infection and dehydration given decreased oral intake -IV fluid D5 half-normal 1 L running at 75 mL/h - resolved #Positive UC -Asymp -Follow off ABs #Hypokalemia;resolved #History of chest pain with no radiation and no history of palpitation, shortness of breath I don't think this pain represent cardiogenic pathology as 6 hours after onset of symptoms troponin was negative with no EKG changes. Signs of volume overload. We'll continue home medication DVT prophylaxis ALPS , Lovenox Diet heart healthy Code full Problem List: 1. Pneumonia Pain Ratin Pain Location: NA Pain Goal: Remain pain free Pain Plan: NA Tomorrow's Labs & Rationales: CBC to monitor WBC BEP to monitor electrolytes
[2017-02-11 09:36] LABS: ABSOLUTE BASOPHIL COUNT 0 /CUMM (0.0-0.2); ABSOLUTE EOSINOPHIL COUNT 0.1 /CUMM (0.0-0.7); ABSOLUTE GRANULOCYTE CT 4.8 /CUMM (1.4-6.5); ABSOLUTE LYMPH COUNT 0.9 /CUMM (1.2-3.4); ABSOLUTE MONOCYTE COUNT 0.6 /CUMM (0.10-0.60); BASOPHIL % 0.2 % (0.0-2.0); MEAN CORPUSCULAR HGB 29.9 PG (27.0-31.0); RBC DISTRIBUTION WIDTH 14.1 % (11.5-14.5)
[2017-02-11 09:49] LABS: EOSINOPHIL % 1.1 % (0-5); GRANULOCYTE % 75.1 % (42.2-75.2); HEMATOCRIT 42.2 % (42-52); MEAN CORPUSCULAR HGB CONC 34.1 G/DL (33.0-37.0); MEAN CORPUSCULAR VOLUME 87.7 FL (80.0-94.0); PLATELET COUNT 172 /CUMM (130-400); RED BLOOD CELL CT 4.81 /CUMM (4.70-6.10)
[2017-02-11 09:53] LABS: WHITE BLOOD CELL COUNT 6.4 /CUMM (4.8-10.8)
--- NOTE | 2017-02-11 11:04 | PN- Att Addend ---
Attending Addendum Attending Brief Note Patient comfortable in bed, daughter at the bedside. Oxygen on. Temp max 100.9 last evening down today. No major changes on physical. Will check the chest x- ray if he spikes a temp again will reculture continue IV antibiotics Total respiratory care get out of bed continue treating his pneumonia. Intake & Output 02/11 1600 02/11 0400 02/10 1600 02/10 0400 02/09 1600 02/09 0400 Intake Total 600 8771 165 3378 Output Total 200 300 400 Balance -200 300 562 655 0226 Intake, IV 172 326 7358 Intake, Oral 600 960 300 Output, Urine 200 300 400 Patient 170 lb 170 lb Weight Weight Reported by Patient Measurement Method Current Medications Sig/Levi Start time Last Medication Dose Route Stop Time Status Admin Acetaminophen 650 MG Q6P PRN 02/09 0900 AC PO Acetaminophen 1,000 MG Q6P PRN 02/09 0900 AC 02/09 IV 2005 Aspirin Buffered 81 MG DAILY 02/09 1000 AC 02/11 PO 1010 Atenolol 50 MG BID 02/09 1000 AC 02/11 PO 1000 Atorvastatin Calcium 80 MG 1700 02/09 1700 AC 02/10 PO 1707 Azithromycin 500 MG DAILY 02/10 1000 AC 02/11 Sodium Chloride 250 ML IV 1011 Ceftriaxone Sodium 1,000 MG DAILY 02/10 1000 AC 02/11 IV 1010 Enoxaparin Sodium 40 MG DAILY 02/09 1000 AC 02/11 SC 1010 Ibuprofen 600 MG Q6P PRN 02/09 0900 AC PO Lisinopril 20 MG DAILY 02/09 1000 AC 02/11 PO 1010 Nitroglycerin 0.4 MG DAILY 02/09 1200 AC 02/11 TOP 1011 Potassium Chloride 40 MEQ ONCE ONE 02/10 1500 DC 02/10 PO 02/10 1501 1508 Laboratory Tests 02/11/17 0844: Anion Gap 8, Estimated GFR > 60, BUN/Creatinine Ratio 13.8 02/11/17 0835: CBC w Diff NO MAN DIFF REQ, RBC 4.81, MCV 87.7, MCH 29.9, RDW 14.1, MPV 9.0, Gran % 75.1, Lymphocytes % 14.3 L, Monocytes % 9.3, Eosinophils % 1.1, Basophils % 0.2, Absolute Granulocytes 4.8, Absolute Lymphocytes 0.9 L, Absolute Monocytes 0.6, Absolute Eosinophils 0.1, Absolute Basophils 0, PUBS MCHC 34.1 02/10/17 1200: Anion Gap 12, Estimated GFR > 60, BUN/Creatinine Ratio 15.0, Magnesium 1.8 02/10/17 0635: Anion Gap 8, Estimated GFR > 60, BUN/Creatinine Ratio 15.0, Magnesium 1.3 L, CBC w Diff NO MAN DIFF REQ, RBC 4.77, MCV 87.5, MCH 29.7, RDW 14.2, MPV 9.6, Gran % 91.8 H, Lymphocytes % 3.7 L, Monocytes % 3.8, Eosinophils % 0.4, Basophils % 0.3, Absolute Granulocytes 12.0 H, Absolute Lymphocytes 0.5 L, Absolute Monocytes 0.5, Absolute Eosinophils 0.1, Absolute Basophils 0, PUBS MCHC 34.0 02/09/17 0920: Lactic Acid 2.0 02/09/17 0813: Virus Culture Pending 02/09/17 0719: Urine Color YEL, Urine Clarity CLEAR, Urine pH 6.0, Ur Specific [place] 1.020, Urine Protein NEG, Urine Ketones NEG, Urine Nitrite NEG, Urine Bilirubin NEG, Urine Urobilinogen 0.2, Ur Leukocyte Esterase NEG, Ur Microscopic SEDIMENT EXAMINED, Urine RBC 10-15 H, Urine WBC RARE, Ur Epithelial Cells FEW, Urine Bacteria FEW H, Urine Mucus FEW, Urine Hemoglobin MOD H, Urine Glucose NEG 02/09/17 0620: Lactic Acid 2.5 H 02/09/17 0620: Anion Gap 13, Estimated GFR > 60, BUN/Creatinine Ratio 15.6, Glucose 110 H, Calcium 9.1, Total Bilirubin 1.2, Direct Bilirubin 0.3, AST 27, ALT 38, Alkaline Phosphatase 79, Troponin I 0.01, Total Protein 7.1, Albumin 4.1, Amylase 77, Lipase 236, PT 12.0, INR 1.14, APTT 30, CBC w Diff NO MAN DIFF REQ, RBC 5.23, MCV 87.9, MCH 29.7, RDW 13.5, MPV 8.8, Gran % 83.2 H, Lymphocytes % 9.7 L, Monocytes % 5.4, Eosinophils % 1.5, Basophils % 0.2, Absolute Granulocytes 9.1 H, Absolute Lymphocytes 1.1 L, Absolute Monocytes 0.6, Absolute Eosinophils 0.2 , Absolute Basophils 0, PUBS MCHC 33.7 Microbiology 02/11 1043 BLOOD: Blood Culture - COLB 02/11 1043 BLOOD: Blood Culture - COLB 02/11 1010 URINE ROUT: Urine Culture - COLB 02/11 1010 LOWER RESP: Respiratory Culture - COLB 02/11 1010 LOWER RESP: Gram Stain - COLB 02/09 0813 NASOPHARYN: Influenza Virus A & B Rapid Smear - COMP 02/09 07 URINE ROUT: Legionella Antigen - COMP 02/09 718 URINE ROUT: Streptococcus pneumoniae Antigen (M - COMP 02/09 718 URINE ROUT: Urine Culture - RES GRAM NEGATIVE RODS 02/09 07 BLOOD: Blood Culture - RES 02/09 0648 BLOOD: Blood Culture - RES Microbiology 02/11 104 BLOOD: Blood Culture - COLB 02/11 1043 BLOOD: Blood Culture - COLB 02/11 1010 URINE ROUT: Urine Culture - COLB 02/11 1010 LOWER RESP: Respiratory Culture - COLB 02/11 1010 LOWER RESP: Gram Stain - COLB 02/09 0813 NASOPHARYN: Influenza Virus A & B Rapid Smear - COMP 02/09 07 URINE ROUT: Legionella Antigen - COMP 02/09 718 URINE ROUT: Streptococcus pneumoniae Antigen (M - COMP 02/09 718 URINE ROUT: Urine Culture - RES GRAM NEGATIVE RODS 02/09 700 BLOOD: Blood Culture - RES 02/09 0548 BLOOD: Blood Culture - RES Vital Signs Date Time Temp Pulse Resp B/P B/P Pulse O2 O2 Flow FiO2 Mean Ox Delivery Rate 02/11 1010 84 118/62 02/11 1000 84 118/62 02/11 0635 98.7 81 18 138/80 91 Room Air 02/11 0000 Room Air 02/10 2200 98.2 85 16 126/80 91 Room Air 02/10 2054 85 126/80 02/10 1600 92 Room Air 02/10 1439 100.9 93 20 140/76 92 Room Air
--- NOTE | 2017-02-11 14:13 | RADIOLOGY REPORT ---
EXAMINATION: XR PORTABLE CHEST CLINICAL INFORMATION: Cough, dyspnea. COMPARISON: 02/09/2017. TECHNIQUE: Portable frontal view of the chest was obtained. FINDINGS: Redemonstrated patchy airspace opacity in the right upper lobe, the overall appearance is not significantly changed compared with the prior exam. There is mild, right greater than left diffuse interstitial prominence which is somewhat improved compared with the prior exam. There is blunting of the left costophrenic sulcus. No pneumothorax is appreciated. Cardiomediastinal silhouette is stable. Status post median sternotomy. IMPRESSION: Persistent patchy airspace opacity in the right upper lobe which is not significantly changed compared with prior. Right greater than left interstitial prominence may reflect some degree of asymmetric edema. Probable small left pleural effusion.
[2017-02-11 14:36] VITALS: BP 112/78
[2017-02-11 22:16] VITALS: BP 128/64
[2017-02-12 07:00] VITALS: BP 122/84
--- NOTE | 2017-02-12 12:45 | PN- Housestaff ---
See Addendum Subjective Follow-up For: CAP Complaints: no complaints Subjective: Overnight there were no acute events. This morning Mr. Guillen states that he was not able to sleep well through the night due to multiple distractions. He states that his breathing is significantly improved and denies any recurrence of fever over the past day and a half. He reports some minimal cough, denies chest pain, palpitations, shortness of breath, nausea, abdominal pain, diarrhea or burning with urination. Review of Systems Constitutional: Reports: see HPI. EENTM: Reports: no symptoms. Cardiovascular: Reports: no symptoms. Respiratory: Reports: see HPI. Gastrointestinal: Reports: no symptoms. Genitourinary: Reports: no symptoms. Musculoskeletal: Reports: no symptoms. Skin: Reports: no symptoms. Objective Last 24 Hrs of Vital Signs/I&O Vital Signs Date Time Temp Pulse Resp B/P B/P Pulse O2 O2 Flow FiO2 Mean Ox Delivery Rate 02/12 1034 64 134/72 02/12 1034 64 134/72 02/12 0800 93 Room Air Room Air 02/12 0700 97.9 66 20 122/84 92 Room Air 02/12 0000 Room Air 02/11 2216 98.6 69 18 128/64 93 Room Air 02/11 2049 69 128/64 02/11 1436 98.3 73 18 112/78 92 Room Air Intake & Output 02/12 1600 02/12 0800 02/12 0000 Intake Total 120 Output Total 350 250 Balance -350 -130 Intake, Oral 120 Output, Urine 350 250 Physical Exam General Appearance: Alert, Cooperative, No Acute Distress Skin: No Significant Lesion Skin Temp/Moisture Exam: Warm/Dry HEENT: EOMI, Mucous Membr. moist/pink Cardiovascular: Regular Rate, Normal S1, Normal S2 Lungs: Normal Air Movement Abdomen: Normal Bowel Sounds, Soft, No Tenderness Neurological: Normal Speech Extremities: Normal Pulses Vascular: Pulses Symmetrical Current Medications: Current Medications Sig/Levi Start time Last Medication Dose Route Stop Time Status Admin Acetaminophen 650 MG Q6P PRN 02/09 0900 AC PO Acetaminophen 1,000 MG Q6P PRN 02/09 0900 AC 02/09 IV 2005 Aspirin Buffered 81 MG DAILY 02/09 1000 AC 02/12 PO 103 Atenolol 50 MG BID 02/09 1000 AC 02/12 PO 103 Atorvastatin Calcium 80 MG 1700 02/09 1700 AC 02/11 PO 1637 Azithromycin 500 MG DAILY 02/10 1000 AC 02/12 Sodium Chloride 250 ML IV 1027 Ceftriaxone Sodium 1,000 MG DAILY 02/10 1000 AC 02/12 IV 1028 Enoxaparin Sodium 40 MG DAILY 02/09 1000 AC 02/12 SC 1035 Ibuprofen 600 MG Q6P PRN 02/09 0900 AC PO Lisinopril 20 MG DAILY 02/09 1000 AC 02/12 PO 1034 Nitroglycerin 0.4 MG DAILY 02/09 1200 AC 02/12 [facility] Patient Medication 1 ED ONE ONE 02/11 1530 [facility] ED 02/11 1531 Last 24 Hrs of Lab/Felix Results Last 24 Hrs of Labs/Mics: Microbiology 02/11 2129 URINE ROUT: Urine Culture - RES Assessment/Plan Assessment: Mr. Guillen is 86-year-old male with PMH of CAD s/p CABG in 2002, HTN, HLD who presented to ED with chief complain of chills and non-productive cough. On admission vital signs temperature 99.1, pulse 112, blood pressure 182/115, respiratory rate 16 saturating 92% on room air Labs significant for white blood cell 10.9, H&H 15.5/46, electrolytes within normal, bicarbonate 25, lactic acid 2.5 Chest x-ray revealed diffuse interstitial prominence with superimposed patchy air space opacity in right upper lobe that could represent pneumonia Problem list #Community acquired pneumonia * Afebrile over the past 48 hours, resolution of leukocytosis. Urine culture positive for Pseudomonas pansensitive. Asymptomatic at this time * Day #3 azithromycin 500 mg, ceftriaxone 1 g IV daily * Plan to discharge to complete 7 day course for community-acquired pneumonia likely with levofloxacin #Lactic acidosis mostly due to the infection and dehydration given decreased oral intake -IV fluid D5 half-normal 1 L running at 75 mL/h - resolved #Positive UC -Asymp -Follow off ABs #Hypokalemia;resolved #History of chest pain with no radiation and no history of palpitation, shortness of breath I don't think this pain represent cardiogenic pathology as 6 hours after onset of symptoms troponin was negative with no EKG changes. Signs of volume overload. We'll continue home medication DVT prophylaxis ALPS , Lovenox Diet heart healthy Code full Problem List: 1. Pneumonia Pain Ratin Pain Location: NA Pain Goal: Pain 4 or less Pain Plan: Pain pathway Tomorrow's Labs & Rationales: None required DVT/Prophylaxis: pharmacological Discharge Plan Discharge Disposition: home Stable for Discharge? Yes Anticipated Discharge (Day): today If Discharged Today/In 24 Hrs: enter [facility] discharge ord, W-10/discharge paper done, DC summary done
[2017-02-12] MEDS ORDERED: LEVAQUIN750 M1 PO (12:55)
--- NOTE | 2017-02-12 12:56 | Patient Discharge Instructions ---
Discharge Instructions General Discharge Information You were seen/treated for: Pneumonia Special Instructions: Please take all medications as directed. Please have a chest x-ray done on 02/17/2017 and have results sent to your PCP Diet Continue normal diet: Yes Activity Activity Self Limited: Yes Acute Coronary Syndrome Inclusion Criteria At DC or during hospital stay patient has or had the following: ACS DIAGNOSIS No Discharge Core Measures Meds if any: Prescribed or Continued at Discharge Meds if any: NOT Prescribed or Continued at Discharge Congestive Heart Failure Inclusion Criteria At DC or during hospital stay patient has or had the following: CHF DIAGNOSIS No Discharge Core Measures Meds if any: Prescribed or Continued at Discharge Meds if any: NOT Prescribed or Continued at Discharge Cerebrovascular accident Inclusion Criteria At DC or during hospital stay patient has or had the following: CVA/TIA Diagnosis No Discharge Core Measures Meds if any: Prescribed or Continued at Discharge Meds if any: NOT Prescribed or Continued at Discharge Venous thromboembolism Inclusion Criteria VTE Diagnosis No VTE Type NONE VTE Confirmed by (Test) NONE Discharge Core Measures - Per Current guidelines, there needs to be overlap - treatment for the first 5 days of Warfarin therapy. - If discharged on Warfarin prior to 5 days of - overlap therapy, the patient will need to be - assessed for post discharge needs including - *Post discharge parental anticoagulation - *Warfarin and/or parental anticoagulation education - *Follow up date to check INR post discharge At least 5 days overlap therapy as Inpatient No Meds if any: Prescribed or Continued at Discharge Note: Overlap Therapy is Warfarin and Anticoagulant Meds if any: NOT Prescribed or Continued at Discharge
[2017-02-12 14:55] VITALS: BP 130/56
== END 2017-02-12 16:10 | DRG 194 ==
LOC: ERH 05:53 → ERHI 07:16 → 2NB 07:16 → ENRESERV 16:27 → 2NA 19:11 → 2NB 19:20 → ENPENDDIS 02-12 13:00 → ENTRNSPT 02-12 16:01 → 2NB 02-12 16:10 → CMPTRNSPT 02-12 16:34
PROVIDERS: Internal Medicine; Pediatrics; Student in an Organized Health Care Education/Training Program
DX: J18.9 Pneumonia, unspecified organism (principal); E87.2 Acidosis; Z95.1 Presence of aortocoronary bypass graft; E78.5 Hyperlipidemia, unspecified; I10 Essential (primary) hypertension; I25.10 Atherosclerotic heart disease of native coronary artery without angina pectoris; E87.6 Hypokalemia
CPT/HCPCS: 2NSBP; 36415; 71045; 71046; 81001; 82436; 87040; 87070; 87086; 87449; 87450; 87804; 87804-59; 93005; 93010; 96374; 96375; 97116-GO; 97161-GP; J0131; J0456; J0696; J1650; J2405; J7040; J7042

== ENCOUNTER 2017-09-23 10:47 | Inpatient (IN) | payer OTHER, MEDICARE ==
[~2017-09-23] VITALS: Ht 165.1 cm; Wt 81.6 kg
[~2017-09-23 10:47] MED LIST changes: +LEVAQUIN750 M1 PO
--- NOTE | 2017-09-23 11:39 | RADIOLOGY REPORT ---
EXAMINATION: XR CHEST CLINICAL INFORMATION: CHF, pneumonia, syncope, chest pain. COMPARISON: 02/17/2017 TECHNIQUE: 2 views of the chest were obtained. FINDINGS: Median sternotomy and CABG. Cardiomediastinal silhouette stable. No congestive failure. Lungs well expanded. No consolidation or effusion to suggest pneumonia. Mild scarring at the bases. Degenerative changes in the spine. IMPRESSION: No acute cardiopulmonary findings. No evidence of pneumonia or congestive heart failure.
[2017-09-23 14:08] LABS: ABSOLUTE BASOPHIL COUNT 0 /CUMM (0.0-0.2); ABSOLUTE EOSINOPHIL COUNT 0.1 /CUMM (0.0-0.7); ABSOLUTE GRANULOCYTE CT 3.9 /CUMM (1.4-6.5); ABSOLUTE LYMPH COUNT 1.7 /CUMM (1.2-3.4); ABSOLUTE MONOCYTE COUNT 0.7 /CUMM (0.10-0.60); BASOPHIL % 0.4 % (0.0-2.0); EOSINOPHIL % 1.8 % (0-5); GRANULOCYTE % 60.7 % (42.2-75.2); MEAN CORPUSCULAR HGB 30.1 PG (27.0-31.0); MEAN CORPUSCULAR HGB CONC 34.5 G/DL (33.0-37.0); MEAN CORPUSCULAR VOLUME 87.4 FL (80.0-94.0); MEAN PLATELET VOLUME 8.6 FL (7.4-10.4); PLATELET COUNT 215 /CUMM (130-400); RBC DISTRIBUTION WIDTH 14.6 % (11.5-14.5); RED BLOOD CELL CT 5.04 /CUMM (4.70-6.10); WHITE BLOOD CELL COUNT 6.4 /CUMM (4.8-10.8)
--- NOTE | 2017-09-23 14:56 | ED CARDIAC/CP/PALPITATIONS ---
History of Present Illness General Chief Complaint: Chest Pain Stated Complaint: CHEST PAIN,WEAKNESS Source: patient, family Exam Limitations: no limitations Vital Signs & Intake/Output Vital Signs & Intake/Output Vital Signs Date Time Temp Pulse Resp B/P B/P Pulse O2 O2 Flow FiO2 Mean Ox Delivery Rate 09/23 1828 98.7 57 20 168/85 98 Room Air 09/23 1528 Room Air 09/23 1524 53 18 180/90 95 Room Air 09/23 1057 98.2 69 18 102/63 98 Room Air Allergies Coded Allergies: NO KNOWN ALLERGIES (12/26/13) Reconcile Medications Aspirin (Ecotrin*) 81 MG TABLET.DR 1 TAB PO DAILY HEART HEALTH (Reported) Atenolol 50 MG TABLET 1 TAB PO BID BP (Reported) Atorvastatin Calcium 80 MG TABLET 1 TAB PO DAILY CHOLESTROL (Reported) Lisinopril 40 MG TABLET 1 TAB PO DAILY HEART (Reported) Nitroglycerin (Nitro-Dur) 0.4 MG/HOUR PATCH.TD24 1 PAT PAT Q24 PRN CHEST PAIN (Reported) Tamsulosin HCl 0.4 MG CAP.ER.24H 1 CAP PO DAILY BPH (Reported) Triage Note: 87M WHO REPORTS GENERALIZED MAILAISE AND FATIGUE X1 WEEK, THAT HE ATTRIBUTES TO THE HEAT. SON REPORTS THAT HE HAD FAINTED A FEW DAYS AGO AND AGAIN FAINTED THIS MORNING. DENIES PRECEEDING CP, BUT DOES HAVE CP INTERMITTENTLY. REPORTS FACIAL HEAD PAIN. HX CABG 2005 AND HAS A NITRO PATCH IN PLACE Triage Nurses Notes Reviewed? yes Onset: Gradual Duration: day(s): Timing: recent history Quality/Severity: moderate Location: left chest HPI: 87yo male with hx of CAD s/p CABG 2002, HTN presents emergency department with son complaining of intermittent left-sided chest pains and syncopal episodes. History obtained from son due to language barrier. Her son the patient has had at least 3 episodes of syncope, one a week ago, 3 days ago and prior to arrival today. Patient reports that when he gets up from sitting to standing he will take a few status and then will pass out, no prodromal symptoms prior to these episodes. Son states that family was concerned because they found him lying on the ground while he was trying to mow the lawn. She states that during this episode he sat down to drink some water and then tried to continue mowing the lawn at which time he passed out. She states that chest pain is intermittent and random, not associated with eating or exertion. Patient describes pain as tightness, left chest and shoulder. 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 Hernandez regarding his cardiac history. He denies dyspnea, headache, abdominal pain, vomiting. (Natalya Rush) Past History Travel History Traveled to [place] past 21 day No Medical History Any Pertinent Medical History? 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 No (Natalya Rush) Review of Systems Review of Systems Constitutional: Reports: no symptoms. EENTM: Reports: no symptoms. Respiratory: Reports: no symptoms. Cardiovascular: Reports: see HPI. GI: Reports: no symptoms. Genitourinary: Reports: no symptoms. Musculoskeletal: Reports: no symptoms. Skin: Reports: no symptoms. Neurological/Psychological: Reports: see HPI. Hematologic/Endocrine: Reports: no symptoms. Immunologic/Allergic: Reports: no symptoms. All Other Systems: Reviewed and Negative (Natalya Rush) Physical Exam Physical Exam General Appearance: well developed/nourished, no apparent distress, alert, awake Head: atraumatic, normal appearance Eyes: Bilateral: normal appearance. Ears, Nose, Throat: hearing grossly normal Neck: normal inspection, supple, full range of motion Respiratory: normal breath sounds, no respiratory distress, lungs clear Cardiovascular: regular rate/rhythm, normal peripheral pulses Peripheral Pulses: 2+ radial (R), 2+ radial (L) Gastrointestinal: normal bowel sounds, soft, non-tender, no organomegaly Back: normal inspection, normal range of motion Extremities: normal inspection Neurologic/Psych: awake, alert, oriented x 3 Skin: intact, normal color, warm/dry Core Measures ACS in differential dx? Yes CVA/TIA Diagnosis No Sepsis Present: No Sepsis Focused Exam Completed? No (Chrissy ALARCON,Natalya Perry) Progress Differential Diagnosis: AMI, CHF/pulm edema, intracranial hemorrhage, myocarditis, pericarditis, pneumonia, pneumothorax, PSVT, unstable angina, V-fib /V-Tach, orthostasis Plan of Care: Orders Procedure Date/time Status Heart Healthy Diet 09/24 B Active Patient Data 09/[address] in observation 09/23 1600 Active ED Holding Orders 09/23 1600 Active Vital Signs 09/23 1600 Active Code Status 09/23 1600 Active MISTAKE 09/23 1527 Active Add-on Test (ER Only) 09/23 1510 Active B-TYPE NATRIURETIC PEP (BNP) 09/23 1355 Complete Intake & Output 09/23 1145 Active URINALYSIS 09/23 1105 Complete TROPONIN LEVEL 09/23 1105 Complete COMPREHENSIVE METABOLIC PANEL 09/23 1105 Complete CBC WITHOUT DIFFERENTIAL 09/23 1105 Complete EKG 09/23 1050 Active Current Medications Sig/Levi Start time Last Medication Dose Stop Time Status Admin Sodium Chloride 1,000 ML ONCE ONE 09/23 1545 AC 09/23 (Normal Saline 0.9%) 09/23 2344 1623 Laboratory Tests 09/23/17 1716: Urine Color YEL, Urine Clarity CLEAR, Urine pH 6.0, Ur Specific [place] 1.015, Urine Protein NEG, Urine Ketones NEG, Urine Nitrite NEG, Urine Bilirubin NEG, Urine Urobilinogen 0.2, Ur Leukocyte Esterase NEG, Ur Microscopic SEDIMENT EXAMINED, Urine RBC 1-3, Ur Epithelial Cells RARE, Urine Mucus FEW, Urine Hemoglobin TRACE-INTACT H, Urine Glucose NEG 09/23/17 1355: Anion Gap 7, Estimated GFR > 60, BUN/Creatinine Ratio 14.0, Glucose 97, Calcium 9.3, Total Bilirubin 1.1, AST 33, ALT 42, Alkaline Phosphatase 64, Troponin I < 0.01, Ulp-D-Vxjvenbkgfa Pept 477 H, Total Protein 7.1, Albumin 4.2, Globulin 2.9, Albumin/Globulin Ratio 1.4, CBC w Diff NO MAN DIFF REQ, RBC 5.04, MCV 87.4, MCH 30.1, MCHC 34.5, RDW 14.6 H, MPV 8.6, Gran % 60.7, Lymphocytes % 25.8, Monocytes % 11.3 H, Eosinophils % 1.8, Basophils % 0.4, Absolute Granulocytes 3.9, Absolute Lymphocytes 1.7, Absolute Monocytes 0.7 H, Absolute Eosinophils 0.1, Absolute Basophils [address] Hernandez regarding this patient. He agrees with plan for telemetry admission given intermittent chest pain with syncopal episodes. He recommends IV fluids if orthostatic vital signs are positive. Orthostatic vital signs are borderline, will initiate slow IV fluid rehydration. Patient's chest x-ray is stable, troponin enzyme negative, EKG in sinus rhythm. Chest pain at this time. Patient requires repeat EKGs and troponins, telemetry monitoring. Case management recommend observation. Spoke with Dr. Lutz regarding telemetry observation. Diagnostic Imaging: Viewed by Me: Radiology Read, CT Scan. Discussed w/RAD: Radiology Read, CT Scan. Radiology Impression: PATIENT: JAKUB BURROWS PRESENT AGE: 87 PATIENT ACCOUNT NO: [id number] : 29 LOCATION: [facility] ORDERING PHYSICIAN: Natalay ALARCON SERVICE DATE: 09/23/17 EXAM TYPE: CAT - CT CERV SPINE WO IV CONTRAST; CT HEAD WO IV CONTRAST EXAMINATION: CT HEAD WITHOUT CONTRAST CT CERVICAL SPINE WITHOUT CONTRAST CLINICAL INFORMATION: Syncope. COMPARISON: None. TECHNIQUE: Imaging was performed from the skull base to vertex without intravenous administration of contrast. In addition, helical noncontrast CT imaging was acquired through the cervical spine and source images were reviewed along with axial reconstructions and sagittal and coronal MPRs. DLP: 947.25 mGy-cm FINDINGS: HEAD: No intracranial mass, hemorrhage, or midline shift is visualized. There is atrophy with prominence of the ventricles and the sulci and hypodensity of the periventricular white matter due to chronic small vessel ischemic disease. There is vascular calcifications of the internal carotid arteries bilaterally. No extra-axial collections are identified. The paranasal sinuses and mastoid air cells are well aerated. CERVICAL SPINE: There is no evidence of acute cervical spine fracture. Vertebral bodies remain normal in height. Cervical vertebrae have normal alignment. There is multilevel degenerative spondylosis of the cervical spine with disc height narrowing and endplate spurs and facet joint arthrosis. There is marked disc height narrowing with endplate spurring at C5-C6 and C6-C7. No pre- or paravertebral soft tissue abnormality is identified. Limited assessment of the lung apices is unremarkable. IMPRESSION: 1. No acute intracranial pathology. 2. No CT evidence of acute cervical spine fracture or traumatic subluxation DICTATED BY: Willie Lowe MD DATE/TIME DICTATED:09/23/171702 CLINICAL LABORATORY TECHNOLOGIST:JOANNE DATE/TIME TRANSCRIBED:09/23/171702 CONFIDENTIAL, DO NOT COPY WITHOUT APPROPRIATE AUTHORIZATION. <Electronically signed in Other Vendor System> SIGNED BY: Willie Lowe MD 09/23/171712 CXR Impression: PATIENT: JAKUB BURROWS PRESENT AGE: 87 PATIENT ACCOUNT NO: [id number] : 29 LOCATION: [facility] ORDERING PHYSICIAN: Christopher ALARCON SERVICE DATE: 09/23/17 EXAM TYPE: RAD - XRY-CHEST XRAY, TWO VIEWS EXAMINATION: XR CHEST CLINICAL INFORMATION: CHF, pneumonia, syncope, chest pain. COMPARISON: 02/17/2017 TECHNIQUE: 2 views of the chest were obtained. FINDINGS: Median sternotomy and CABG. Cardiomediastinal silhouette stable. No congestive failure. Lungs well expanded. No consolidation or effusion to suggest pneumonia. Mild scarring at the bases. Degenerative changes in the spine. IMPRESSION: No acute cardiopulmonary findings. No evidence of pneumonia or congestive heart failure. DICTATED BY: Alton Alvarez MD DATE/TIME DICTATED: 09/23/171134 CLINICAL LABORATORY TECHNOLOGIST:JOANNE DATE/TIME TRANSCRIBED:09/23/171134 CONFIDENTIAL, DO NOT COPY WITHOUT APPROPRIATE AUTHORIZATION. <Electronically signed in Other Vendor System> SIGNED BY: Alton Alvarez MD 09/23/179 Initial ED EKG: SINUS RHYTHM @60BPM, PACs NONSPECIFIC ST CHANGES Prior EKG: unchanged (02/09/17) (Chrissy ALARCON,Natalya Perry) Departure Departure Disposition: STILL A PATIENT Condition: Stable Clinical Impression Primary Impression: Chest pain Secondary Impressions: Syncope Referrals: Juan Lutz MD (PCP/Family) Departure Forms: Customer Survey General Discharge Information Observation Note Spoke With: Juan Lutz MD Physician Advisor Notified: HUNTER NARANJO,MORENA Jerome Place Patient In: Non-ED OBS Care Area Rationale for Observation: My rational for observation is as follows [chest pain with syncopal episodes requiring cardiology consult, telemetry monitoring, trend EKGs and troponins, gental IV fluid rehydration premature discharge medially unsafe]. (Chrissy ALARCON,Natalya Perry) PA/LEADERSHIP INTERN Co-Sign Statement Statement: ED Attending supervision documentation- [X] I saw and evaluated the patient. I have also reviewed all the pertinent lab results and diagnostic results. I agree with the findings and the plan of care as documented in the PA's/LEADERSHIP INTERN's documentation. [X] I have reviewed the ED Record and agree with the PA's/LEADERSHIP INTERN's documentation. [] Additions or exceptions (if any) to the PAs/LEADERSHIP INTERN's note and plan are summarized below: [Patient be placed in telemetry observation for chest pain and a syncopal episode which occurred earlier today. Patient will need telemetry monitoring and serial enzymes, cardiology consultation] (Hunter NARANJO,Morena Jerome) Critical Care Note Critical Care Note Critical Care Time: non-applicable (Natalya Rush)
[2017-09-23] MEDS ORDERED: TAMSULOSIN HCL0.4 M1 PO (15:25)
[2017-09-23] MEDS ORDERED: LISINOPRIL40 M1 PO (15:26)
--- NOTE | 2017-09-23 17:13 | CT SCAN REPORT ---
EXAMINATION: CT HEAD WITHOUT CONTRAST CT CERVICAL SPINE WITHOUT CONTRAST CLINICAL INFORMATION: Syncope. COMPARISON: None. TECHNIQUE: Imaging was performed from the skull base to vertex without intravenous administration of contrast. In addition, helical noncontrast CT imaging was acquired through the cervical spine and source images were reviewed along with axial reconstructions and sagittal and coronal MPRs. DLP: 947.25 mGy-cm FINDINGS: HEAD: No intracranial mass, hemorrhage, or midline shift is visualized. There is atrophy with prominence of the ventricles and the sulci and hypodensity of the periventricular white matter due to chronic small vessel ischemic disease. There is vascular calcifications of the internal carotid arteries bilaterally. No extra-axial collections are identified. The paranasal sinuses and mastoid air cells are well aerated. CERVICAL SPINE: There is no evidence of acute cervical spine fracture. Vertebral bodies remain normal in height. Cervical vertebrae have normal alignment. There is multilevel degenerative spondylosis of the cervical spine with disc height narrowing and endplate spurs and facet joint arthrosis. There is marked disc height narrowing with endplate spurring at C5-C6 and C6-C7. No pre- or paravertebral soft tissue abnormality is identified. Limited assessment of the lung apices is unremarkable. IMPRESSION: 1. No acute intracranial pathology. 2. No CT evidence of acute cervical spine fracture or traumatic subluxation
--- NOTE | 2017-09-23 17:37 | PN- Att Addend ---
Attending Addendum Attending Brief Note 87 year old male was doing some yard work yesterday today not feeling well dizzy fainted per son,intermittent chest pain comes to the ER alert a little weak in NAD had EKG labs troponins negative so far,will have cardiology evaluation observation in telimetry serial labs. Current Medications Sig/Levi Start time Last Medication Dose Route Stop Time Status Admin Sodium Chloride 1,000 ML ONCE ONE 09/23 1545 AC 09/23 IV 09/23 2344 1623 Laboratory Tests 09/23/17 1716: Urine Color Pending, Urine Clarity Pending, Urine pH Pending, Ur Specific [place] Pending, Urine Protein Pending, Urine Ketones Pending, Urine Nitrite Pending, Urine Bilirubin Pending, Urine Urobilinogen Pending, Ur Leukocyte Esterase Pending, Ur Microscopic Pending, Urine Hemoglobin Pending, Urine Glucose Pending 09/23/17 1355: Anion Gap 7, Estimated GFR > 60, BUN/Creatinine Ratio 14.0, Glucose 97, Calcium 9.3, Total Bilirubin 1.1, AST 33, ALT 42, Alkaline Phosphatase 64, Troponin I < 0.01, Uoe-A-Kjoglnpqoza Pept 477 H, Total Protein 7.1, Albumin 4.2, Globulin 2.9, Albumin/Globulin Ratio 1.4, CBC w Diff NO MAN DIFF REQ, RBC 5.04, MCV 87.4, MCH 30.1, MCHC 34.5, RDW 14.6 H, MPV 8.6, Gran % 60.7, Lymphocytes % 25.8, Monocytes % 11.3 H, Eosinophils % 1.8, Basophils % 0.4, Absolute Granulocytes 3.9, Absolute Lymphocytes 1.7, Absolute Monocytes 0.7 H, Absolute Eosinophils 0.1, Absolute Basophils 0 Vital Signs Date Time Temp Pulse Resp B/P B/P Pulse O2 O2 Flow FiO2 Mean Ox Delivery Rate 09/23 1528 Room Air 09/23 1524 53 18 180/90 95 Room Air 09/23 1057 98.2 69 18 102/63 98 Room Air Intake & Output 09/23 1600 Intake Total Output Total Balance Patient 170 lb Weight
--- NOTE | 2017-09-23 18:44 | History & Physical ---
General Information and HPI MD Statement: I have seen and personally examined JAKUB BURROWS and documented this H&P. The patient is a 87 year old M who presented with a patient stated chief complaint of [CHEST PAIN]. Source of Information: patient, family, old records Exam Limitations: no limitations History of Present Illness: Patient is an 87-year-old male, presented with chief complaints of, dizziness and chest pain. Past medical history- Hypertension Hyperlipidemia Coronary artery disease status post CABG in 2005;with old bypass grafts and known occlusion of his SVG. History of present illness - Most of the history taken from the granddaughter, as patient is partially Estonian speaking. According to them he had 3 episodes of fainting and last 1 week. In one episode around a week ago when he was in a store just sitting on the chair he felt slight dizziness without any fall. He continued to have intermittent dizziness. Yesterday he worked outside in the yard and around 3:57 PM he fall down on the floor. He recovered within a seconds. He denies for any episodes of nausea, vomiting, palpitation, seizure, incontinence of the stool and urine, tongue bite, diarrhea, dysuria, fever, chills, change in appetite. In the morning he dropped her daughter at the work and afterwards he started having slight tightness in the chest. Which she defined as something is sitting on the chest, intermittent, mild and radiated to both shoulder. They called Dr. Lutz who advised to come to the [facility] ED. Personal history -lives at home with the family denies alcohol, smoking Family history-noncontributory Allergies/Medications Allergies: Coded Allergies: NO KNOWN ALLERGIES (12/26/13) Home Med list Aspirin (Ecotrin*) 81 MG TABLET.DR 1 TAB PO DAILY HEART HEALTH (Reported) Atenolol 50 MG TABLET 1 TAB PO BID BP (Reported) Atorvastatin Calcium 80 MG TABLET 1 TAB PO DAILY CHOLESTROL (Reported) Lisinopril 40 MG TABLET 1 TAB PO DAILY HEART (Reported) Nitroglycerin (Nitro-Dur) 0.4 MG/HOUR PATCH.TD24 1 PAT PAT Q24 PRN CHEST PAIN (Reported) Tamsulosin HCl 0.4 MG CAP.ER.24H 1 CAP PO DAILY BPH (Reported) Past History Travel History Traveled to [place] past 21 day No Medical History Neurological: NONE EENT: NONE Cardiovascular: CAD, hypertension, hyperlipidemia Respiratory: NONE Gastrointestinal: NONE Hepatic: NONE Renal: NONE Musculoskeletal: NONE Psychiatric: NONE Endocrine: NONE Blood Disorders: NONE 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 Cardiovascular: Reports: chest pain. Exam & Diagnostic Data Last 24 Hrs of Vital Signs/I&O Vital Signs Date Time Temp Pulse Resp B/P B/P Pulse O2 O2 Flow FiO2 Mean Ox Delivery Rate 09/23 1828 98.7 57 20 168/85 98 Room Air 09/23 1528 Room Air 09/23 1524 53 18 180/90 95 Room Air 09/23 1057 98.2 69 18 102/63 98 Room Air Intake & Output 09/23 1600 09/23 0800 09/23 0000 Intake Total Output Total Balance Patient 77.111 kg Weight Physical Exam General Appearance Alert, Oriented X3, Cooperative, No Acute Distress Cardiovascular Normal S1, Normal S2 Lungs Clear to Auscultation, Normal Air Movement Abdomen Soft, No Tenderness Extremities No Clubbing, No Cyanosis, No Edema, Normal Pulses Last 24 Hrs of Labs/Felix: Laboratory Tests 09/23/17 1716: Urine Color YEL, Urine Clarity CLEAR, Urine pH 6.0, Ur Specific [place] 1.015, Urine Protein NEG, Urine Ketones NEG, Urine Nitrite NEG, Urine Bilirubin NEG, Urine Urobilinogen 0.2, Ur Leukocyte Esterase NEG, Ur Microscopic SEDIMENT EXAMINED, Urine RBC 1-3, Ur Epithelial Cells RARE, Urine Mucus FEW, Urine Hemoglobin TRACE-INTACT H, Urine Glucose NEG 09/23/17 1355: Anion Gap 7, Estimated GFR > 60, BUN/Creatinine Ratio 14.0, Glucose 97, Calcium 9.3, Total Bilirubin 1.1, AST 33, ALT 42, Alkaline Phosphatase 64, Troponin I < 0.01, Tfd-M-Prsnuhjnysa Pept 477 H, Total Protein 7.1, Albumin 4.2, Globulin 2.9, Albumin/Globulin Ratio 1.4, CBC w Diff NO MAN DIFF REQ, RBC 5.04, MCV 87.4, MCH 30.1, MCHC 34.5, RDW 14.6 H, MPV 8.6, Gran % 60.7, Lymphocytes % 25.8, Monocytes % 11.3 H, Eosinophils % 1.8, Basophils % 0.4, Absolute Granulocytes 3.9, Absolute Lymphocytes 1.7, Absolute Monocytes 0.7 H, Absolute Eosinophils 0.1, Absolute Basophils 0 Diagnostic Data EKG Results NSR,HR-60, APCs, CXR Results No acute cardiopulmonary findings. No evidence of pneumonia or congestive heart failure. Assessment/Plan Assessment: Patient is an 87-year-old male, presented with chief complaints of, dizziness and chest pain. Vital signs at the time of admission -temperature 98.2, pulse 69, respiratory rate 18, blood pressure 102/63, SPO2 98% on room air. Orthostatic blood pressure lying 180/90, sitting 161/83, standing 163/92. Blood workup-hemoglobin 15.2, hematocrit 44.0, platelet count 215, granulocyte 60.7, sodium 138, potassium 4.8, chloride 102, carbon dioxide 29, anion gap 7, BUN 14, creatinine 1.0, glucose 97, calcium 9.3, total bilirubin 1.1, AST 33, ALT 42, alkaline phosphatase 64, troponin I less than 0.012 times, proBNP 477, total protein 7.1, urinalysis-trace intact hemoglobin. Chest x-ray -no any cardiopulmonary abnormality CT head/cervical spine - 1. No acute intracranial pathology. 2. No CT evidence of acute cervical spine fracture or traumatic subluxation Echocardiogram 2013 -LVEF 40% Assessment and plan - Patient kept under observation and telemetry. 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 * We will start the patient on IV fluid * Stop Flomax * Vitals every shift Chest pain, possible unstable angina need evaluation * We will admit the patient to telemetry floor * Serial troponins and EKGs * Cardiology consult * We will continue lisinopril, atorvastatin, aspirin, nitroglycerin paste, atenolol. Diet-heart healthy diet CODE STATUS-DNR/DNI DVT prophylaxis-EDWIN/heparin As Ranked By This Provider Problem List: 1. Syncope Observation Initial Note - I have personally examined JAKUB BURROWS on 08/18/18 at 0716. The disposition of JAKUB BURROWS is uncertain at this time and before a determination can be made, he requires a period of observation for the following reasons [chest pain and dizziness] Core Measures/Misc (10/24) Acute Coronary Syndrome ACS Diagnosis: No Congestive Heart Failure Congestive Heart Failure Diagnosis No Cerebrovascular Accident CVA/TIA Diagnosis: No VTE (View Protocol) VTE Risk Factors Age>40 No Mechanical VTE Prophylaxis d/t N/A MechProphylax Ordered No VTE Pharm Prophylaxis d/t NA PharmProphylax ordered Sepsis (View protocol) Sepsis Present: No If YES complete Sepsis Event Note If YES complete Sepsis Event Note
[2017-09-23 21:29] VITALS: BP 154/88
--- NOTE | 2017-09-23 22:08 | Cons- Cardiology ---
General Information and HPI Consulting Request Date of Consult: 09/23/17 Requested By: Juan Lutz MD History of Present Illness: Gay is an 87 year old male with history of hypertension, dyslipidemia and coronary artery disease s/p CABG in 2005. Recently this patient has experienced at least three episodes of fainting that were very brief. They occured consistently in the setting of arising from a sitting position. There were no associated palpitations and no prolonged lethargy following these events. The patient had enought awareness to put his hands out and protect himself. The patient does report some mild chest pressure as well. He does not think that this has changed in frequency, intensity or duration from his baseline. In response to this symptom, the patient has undergone a cardiac catheterization which showed closure of a saphenous vein graft. A subsequent stress test was negative for ischemia. Medical management has been pursued. Finally, it should be noted that this patient was recently started on a medication for BPH which has helped in regard to intended use. In the ER the patient did have a 17mmHg drop in BP upon standing. Allergies/Medications Allergies: Coded Allergies: NO KNOWN ALLERGIES (12/26/13) Home Med List: Aspirin (Ecotrin*) 81 MG TABLET.DR 1 TAB PO DAILY HEART HEALTH (Reported) Atenolol 50 MG TABLET 1 TAB PO BID BP (Reported) Atorvastatin Calcium 80 MG TABLET 1 TAB PO DAILY CHOLESTROL (Reported) Lisinopril 40 MG TABLET 1 TAB PO DAILY HEART (Reported) Nitroglycerin (Nitro-Dur) 0.4 MG/HOUR PATCH.TD24 1 PAT PAT Q24 PRN CHEST PAIN (Reported) Tamsulosin HCl 0.4 MG CAP.ER.24H 1 CAP PO DAILY BPH (Reported) Past History Travel History Traveled to [place] past 21 day No Medical History Neurological: NONE EENT: NONE Cardiovascular: CAD, hypertension, hyperlipidemia Respiratory: NONE Gastrointestinal: NONE Hepatic: NONE Renal: NONE Musculoskeletal: NONE Psychiatric: NONE Endocrine: NONE Blood Disorders: NONE Cancer(s): NONE 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 Surgical History Surgical History: CABG (2002) Family History Relations & Conditions If Any: Relation not specified for: *No pertinent family history Exam & Diagnostic Data Vital Signs and I&O Vital Signs Date Time Temp Pulse Resp B/P B/P Pulse O2 O2 Flow FiO2 Mean Ox Delivery Rate 09/23 2129 97.8 61 20 154/88 93 Room Air 09/23 1828 98.7 57 20 168/85 98 Room Air 09/23 1528 Room Air 09/23 1524 53 18 180/90 95 Room Air 09/23 1057 98.2 69 18 102/63 98 Room Air Intake & Output 09/23 1600 09/23 0800 09/23 0000 09/22 1600 09/22 0800 09/22 0000 Intake Total Output Total Balance Patient 170 lb Weight Physical Exam: General: WD/ WN male in NAD; alert and oriented x 3 HEENT: NC/ AT, PERRL, EOMI Neck: no JVD, no carotid bruit Heart: RRR w/o murmur Lungs: clear bilaterally Abdomen: soft, NT, +ve bowel sounds Extremities: no edema Assessment/Plan Assessment/Plan * This patient has known coronary artery disease with old bypass grafts and known occlusion of his SVG. Nevertheless, his last stress test is negative for ischemia, his chest pain has not progressed, his troponin is normal and there are no acute ischemic electrocardiographic changes. We will monitor this patient on telelmetryand continue non-invasive medical therapy with NTG patch, Atenolol, aspirin and a statin. * This patient started having symptoms of lightheadedness after beginning his new prostate medication. This medication is notorious for causeing orthostasis which was noted in the ER. Stop his Tamsulosis. Hydrate with normal saline. Monitor on telemetry for arrhythmias which I do not expect. * Obtain an echocardiogram. Consult Acknowledgment - Thank you for your consult request.
[2017-09-24 06:30] VITALS: BP 132/96
--- NOTE | 2017-09-24 07:16 | PN-Observation ---
Observation Note Observation Note _ I have personally examined JAKUB BURROWS. him disposition is uncertain at this time. Before a determination can be made, he requires continued observation for the following reasons [chest pain]. Assessment/Plan Medical Assessment: Patient is an 87-year-old male presented primary with chest pain and dizziness. In the emergency department her orthostatics were positive. He was started on IV fluids. We stopped the tablet tamsulosin which is of unknown cause of orthostatic hypotension. Vital signs-temperature 97.8, pulse 61, respiratory 20, blood pressure 154/88, SPO2 92% on room air. Assessment and plan- * Patient is under observation * Serial troponins and EKGs were negative * We will follow cardiology recommendation * We will follow echocardiogram * We will follow orthostatic vitals * CODE STATUS-DNR/DNI * Diet-heart healthy diet * DVT prophylaxis-ALPS/heparin Problem List: 1. Unstable angina DVT/Prophylaxis: mechanical, pharmacological Subjective Follow-up For: Chest pain and dizziness Complaints: no complaints Subjective: Patient is seen and examined at the bedside. He does not have any active complaints. Review of Systems Constitutional: Denies: no symptoms. Objective Last 24 Hrs of Vital Signs/I&O Vital Signs Date Time Temp Pulse Resp B/P B/P Pulse O2 O2 Flow FiO2 Mean Ox Delivery Rate 09/23 2129 97.8 61 20 154/88 93 Room Air 09/23 1828 98.7 57 20 168/85 98 Room Air 09/23 1528 Room Air 09/23 1524 53 18 180/90 95 Room Air 09/23 1057 98.2 69 18 102/63 98 Room Air Intake & Output 09/24 0800 09/24 0000 09/23 1600 Intake Total 200 Output Total Balance 200 Intake, Oral 200 Patient 81.647 kg 77.111 kg Weight Physical Exam General Appearance: Alert, Oriented X3, Cooperative, No Acute Distress Cardiovascular: Normal S1, Normal S2, murmur present Lungs: Clear to Auscultation, Normal Air Movement Abdomen: Soft, No Tenderness Extremities: No Clubbing, No Cyanosis, No Edema Vascular: Normal Pulses, Pulses Symmetrical
--- NOTE | 2017-09-24 08:58 | Patient Discharge Instructions ---
Discharge Instructions General Discharge Information You were seen/treated for: Dizziness and chest pain. Her orthostatics were positive so we treated with IV fluid and held tamsulosin. Watch for these problems: Headache, dizziness, palpitation, blacking in front of eyes. Special Instructions: Please follow-up with your PCP within a week of discharge. Please follow-up with your screen printer helper Dr. Hernandez within a week of discharge. We started you on tablet amiodarone and finasteride. Please discuss this medication with your primary care provider. Please discuss with your screen printer helper about an outpatient loop recorder to assess his heart rhythm if he again syncopizes. Diet Recommended Diet: Heart Healthy Acute Coronary Syndrome Inclusion Criteria At DC or during hospital stay patient has or had the following: ACS DIAGNOSIS No Discharge Core Measures Meds if any: Prescribed or Continued at Discharge Meds if any: NOT Prescribed or Continued at Discharge Congestive Heart Failure Inclusion Criteria At DC or during hospital stay patient has or had the following: CHF DIAGNOSIS No Discharge Core Measures Meds if any: Prescribed or Continued at Discharge Meds if any: NOT Prescribed or Continued at Discharge Cerebrovascular accident Inclusion Criteria At DC or during hospital stay patient has or had the following: CVA/TIA Diagnosis No Discharge Core Measures Meds if any: Prescribed or Continued at Discharge Meds if any: NOT Prescribed or Continued at Discharge Venous thromboembolism Inclusion Criteria VTE Diagnosis No VTE Type NONE VTE Confirmed by (Test) NONE Discharge Core Measures - Per Current guidelines, there needs to be overlap - treatment for the first 5 days of Warfarin therapy. - If discharged on Warfarin prior to 5 days of - overlap therapy, the patient will need to be - assessed for post discharge needs including - *Post discharge parental anticoagulation - *Warfarin and/or parental anticoagulation education - *Follow up date to check INR post discharge At least 5 days overlap therapy as Inpatient No Meds if any: Prescribed or Continued at Discharge Note: Overlap Therapy is Warfarin and Anticoagulant Meds if any: NOT Prescribed or Continued at Discharge
--- NOTE | 2017-09-24 11:40 | PN- Pulmonary ---
See Addendum Subjective HPI/Critical Care Issues: Doing better no complaints Afebrile No further dizziness No nausea vomiting No chest pain Objective Current Medications: Current Medications Sig/Levi Start time Last Medication Dose Route Stop Time Status Admin Aspirin Buffered 81 MG DAILY 09/24 0900 AC 09/24 PO 0834 Atenolol 50 MG BID 09/23 2100 AC 09/24 PO 0834 Atorvastatin Calcium 80 MG DAILY 09/24 0900 AC 09/24 PO 0834 Heparin Sodium 5,000 UNIT Q8 09/23 2242 AC 09/24 (Porcine) SC 0613 Lisinopril 40 MG DAILY 09/24 0900 AC 09/24 PO 0834 Nitroglycerin 0.4 MG Q24 PRN 09/23 2000 AC TOP Sodium Chloride 1,000 ML Q13H 09/23 2245 DC IV Sodium Chloride 1,000 ML ONCE ONE 09/23 1545 DC 09/23 IV 09/23 2344 1623 Tamsulosin HCl 0.4 MG DAILY 09/24 0900 CAN PO Vital Signs & I&O Last 24 Hrs of Vitals and I&O: Vital Signs Date Time Temp Pulse Resp B/P B/P Pulse O2 O2 Flow FiO2 Mean Ox Delivery Rate 09/24 0834 74 132/96 09/24 0834 74 132/96 09/24 0630 97.7 74 20 132/96 95 09/23 2129 97.8 61 20 154/88 93 Room Air 09/23 1828 98.7 57 20 168/85 98 Room Air 09/23 1528 Room Air 09/23 1524 53 18 180/90 95 Room Air Intake & Output 09/24 1600 09/24 0800 09/24 0000 Intake Total 200 Output Total Balance 200 Intake, Oral 200 Patient 180 lb Weight Laboratory Tests 09/2450 2018 171 Chemistry Troponin I (<0.11 ng/ml) < 0.01 < 0.01 Urines Urine Color (YEL,AMB,STR) YEL Urine Clarity (CLEAR) CLEAR Urine pH (5.0 - 8.0) 6.0 Ur Specific Riparius (1.001 - 1.035) 1.015 Urine Protein (NEG,<30 MG/DL) NEG Urine Ketones (NEG) NEG Urine Nitrite (NEG) NEG Urine Bilirubin (NEG) NEG Urine Urobilinogen (0.1 - 1.0 EU/dl) 0.2 Ur Leukocyte Esterase (NEG) NEG Ur Microscopic SEDIMENT EXAMINED Urine RBC (0 - 5 /HPF) 1-3 Ur Epithelial Cells (NONE,FEW) RARE Urine Mucus (FEW,NONE) FEW Urine Hemoglobin (NEG) TRACE-INTACT H Urine Glucose (N MG/DL) NEG 09/23 1355 Chemistry Sodium (137 - 145 mmol/L) 138 Potassium (3.5 - 5.1 mmol/L) 4.8 Chloride (98 - 107 mmol/L) 102 Carbon Dioxide (22 - 30 mmol/L) 29 Anion Gap (5 - 16) 7 BUN (9 - 20 mg/dL) 14 Creatinine (0.7 - 1.2 mg/dL) 1.0 Estimated GFR (>60 ml/min) > 60 BUN/Creatinine Ratio (7 - 25 %) 14.0 Glucose (65 - 99 mg/dL) 97 Calcium (8.4 - 10.2 mg/dL) 9.3 Total Bilirubin (0.2 - 1.3 mg/dL) 1.1 AST (17 - 59 U/L) 33 ALT (21 - 72 U/L) 42 Alkaline Phosphatase (< 127 U/L) 64 Troponin I (<0.11 ng/ml) < 0.01 Rth-F-Ivtkdxfdule Pept (<125 pg/mL) 477 H Total Protein (6.3 - 8.2 g/dL) 7.1 Albumin (3.5 - 5.0 g/dL) 4.2 Globulin (1.9 - 4.2 gm/dL) 2.9 Albumin/Globulin Ratio (1.1 - 2.2 %) 1.4 Hematology CBC w Diff NO MAN DIFF REQ WBC (4.8 - 10.8 /CUMM) 6.4 RBC (4.70 - 6.10 /CUMM) 5.04 Hgb (14.0 - 18.0 G/DL) 15.2 Hct (42 - 52 %) 44.0 MCV (80.0 - 94.0 FL) 87.4 MCH (27.0 - 31.0 PG) 30.1 MCHC (33.0 - 37.0 G/DL) 34.5 RDW (11.5 - 14.5 %) 14.6 H Plt Count (130 - 400 /CUMM) 215 MPV (7.4 - 10.4 FL) 8.6 Gran % (42.2 - 75.2 %) 60.7 Lymphocytes % (20.5 - 51.1 %) 25.8 Monocytes % (1.7 - 9.3 %) 11.3 H Eosinophils % (0 - 5 %) 1.8 Basophils % (0.0 - 2.0 %) 0.4 Absolute Granulocytes (1.4 - 6.5 /CUMM) 3.9 Absolute Lymphocytes (1.2 - 3.4 /CUMM) 1.7 Absolute Monocytes (0.10 - 0.60 /CUMM) 0.7 H Absolute Eosinophils (0.0 - 0.7 /CUMM) 0.1 Absolute Basophils (0.0 - 0.2 /CUMM) 0 Impression/Plan Impression/Plan Impression/Plan: General Appearance: Alert, Oriented X3, Cooperative, No Acute Distress Cardiovascular: Normal S1, Normal S2, murmur present Lungs: Clear to Auscultation, Normal Air Movement Abdomen: Soft, No Tenderness Extremities: No Clubbing, No Cyanosis, No Edema Vascular: Normal Pulses, Pulses Symmetrical This is a gentleman with ischemic heart disease in the past with CABG, last stress test negative, now comes in with symptoms of lightheadedness after he started his Flomax. This morning he feels much better. He was hydrated. No chest pain no chest discomfort now and his troponin is normal. Issues include Orthostatic hypotension most likely related to mild dehydration and Flomax Ischemic heart disease with prior low ejection fraction, no active ischemia at this time Hypertension, hyperlipidemia, chronic angina RECOMMENDATION Stable Continue all outpatient medications except Flomax If okay with cardiology patient wants to be discharged to be stable he can be discharged centimeters are noted
--- NOTE | 2017-09-24 13:50 | PN- Cardiology ---
Subjective Subjective: * Patient noted to have an asymptomatic but sustained run of ventricular tachycardia. No other complaints. Objective Vital Signs and I&Os Vital Signs Date Time Temp Pulse Resp B/P B/P Pulse O2 O2 Flow FiO2 Mean Ox Delivery Rate 09/24 0834 74 132/96 09/24 0834 74 132/96 09/24 0630 97.7 74 20 132/96 95 09/23 2129 97.8 61 20 154/88 93 Room Air 09/23 1828 98.7 57 20 168/85 98 Room Air 09/23 1528 Room Air 09/23 1524 53 18 180/90 95 Room Air Intake & Output 09/24 1600 09/24 0800 09/24 0000 09/23 1600 09/23 0800 09/23 0000 Intake Total 200 Output Total Balance 200 Intake, Oral 200 Patient 180 lb 170 lb Weight Physical Exam: General: WD/ WN male in NAD; alert and oriented x 3 HEENT: NC/ AT, PERRL, EOMI Neck: no JVD, no carotid bruit Heart: RRR w/o murmur Lungs: clear bilaterally Abdomen: soft, NT, +ve bowel sounds Extremities: no edema Assessment/Plan Assessment/Plan * This patient has known coronary artery disease with old bypass grafts and known occlusion of his SVG. Nevertheless, his last stress test is negative for ischemia, his chest pain has not progressed, his troponin is normal and there are no acute ischemic electrocardiographic changes. We will monitor this patient on telelmetry and continue non-invasive medical therapy with NTG patch, Atenolol , aspirin and a statin. * This patient started having symptoms of lightheadedness after beginning his new prostate medication. Although I had some level of suspicion that his syncope was related to beginning this medication, his run of ventricular tachycardia is a more concerning potential cause of syncope. We will begin Amiodarone 400mg BID and will continue to monitor on telemetry. We will arrange for an EP evaluation for possible defibrillator placement. * Obtain an echocardiogram. Continue telemetry? Yes
[2017-09-24 14:55] VITALS: BP 140/80
[2017-09-24 20:48] VITALS: BP 138/88
[2017-09-25 06:00] VITALS: BP 148/90
--- NOTE | 2017-09-25 09:04 | PN- Housestaff ---
Subjective Follow-up For: Chest pain Subjective: No events on telemetry. No events per nursing. Patient says a joke about wanting a shot of vodka. He denies any chest pain, dizziness, shortness of breath today. Review of Systems Constitutional: Reports: see HPI. Objective Last 24 Hrs of Vital Signs/I&O Vital Signs Date Time Temp Pulse Resp B/P B/P Pulse O2 O2 Flow FiO2 Mean Ox Delivery Rate 09/25 1400 98.6 60 20 130/72 97 09/25 0806 65 148/90 09/25 0600 97.6 65 18 148/90 96 09/24 2048 98.2 60 18 138/88 96 Room Air 09/24 2044 70 136/88 09/24 2044 70 136/88 Intake & Output 09/25 1600 09/25 0809/25 0000 Intake Total 500 50 340 Output Total 400 Balance 500 -350 340 Intake, Oral 500 50 340 Output, Urine 400 Physical Exam General Appearance: Alert, Oriented X3, Cooperative, No Acute Distress HEENT: Atraumatic, EOMI Neck: Supple Cardiovascular: Regular Rate, Normal S1, Normal S2 Lungs: Clear to Auscultation Abdomen: Normal Bowel Sounds, Soft, No Tenderness Current Medications: Current Medications Sig/Levi Start time Last Medication Dose Route Stop Time Status Admin Amiodarone HCl 400 MG BID 09/24 2099 AC 09/25 PO 08 Aspirin Buffered 81 MG DAILY 09/24 899 AC 09/25 PO 08 Atenolol 50 MG BID 09/23 2099 AC 09/25 PO 08 Atorvastatin Calcium 80 MG DAILY 09/24 899 AC 09/25 PO 08 Heparin Sodium 5,000 UNIT Q8 09/23 2242 AC 09/25 (Porcine) SC 1447 Lisinopril 40 MG DAILY 09/24 09 AC 09/25 PO 0807 Nitroglycerin 0.4 MG Q24 PRN 09/24 1999 TOP Assessment/Plan Assessment: 87yo M with PMH of hypertension, dyslipidemia and coronary artery disease s/p CABG in 2005. Recently this patient has experienced at least three episodes of fainting that were very brief. They occured consistently in the setting of arising from a sitting position. The patient does report some mild chest pressure as well. A subsequent stress test was negative for ischemia. Medical management has been pursued. In the ED the patient did have a 17mmHg drop in BP upon standing. The pt has a hx of ischemic heart disease. Last stress test was negative. 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 Will continue to monitor on telemetry dt recurrent episodes of Vtach. #Orthostatic hypotension #Recurrent sustained VT - Hold Tamsulosin today - Continue Amiodarone 400 mg BID - Mg levels am - EPS eval tmrw Problem List: 1. Chest pain Pain Ratin Pain Location: NA Pain Goal: Remain pain free Pain Plan: Pathway Tomorrow's Labs & Rationales: Only Mg
--- NOTE | 2017-09-25 09:06 | ECHOCARDIOGRAM REPORT ---
JAKUB BURROWS Age: 87 : 1930 Gender: M Exam Date: 09/24/2017 12:13 Exam Location: [address] Ht (in): 65 Wt (lb): 170 BSA: 1.90 BP: 132 / 96 Ordering Physician: Daxa Vaughn MD Referring Physician: Daxa Vaughn MD Technologist: Leeann Henderson [facility] Room Number: [id number] Indications: Rhythm: Sinus Technical Quality: good FINDINGS Left Ventricle Normal left ventricular size, wall thickness and systolic function with no obvious regional wall motion abnormalities. Normal left ventricular diastolic filling pattern for age. The ejection fraction is visually estimated at 55%. Right Ventricle The right ventricle is normal in size and function. Right Atrium The right atrium is normal in size. Left Atrium The left atrium is moderately enlarged. The interatrial septum is intact. Mitral Valve The mitral valve is normal in structure and function. There is mild to moderate mitral regurgitation. Aortic Valve Structurally normal aortic valve without significant sclerosis or stenosis. There is mild aortic regurgitation. Tricuspid Valve The tricuspid valve is normal in structure and function. There is trace tricuspid regurgitation. Pulmonary artery systolic pressure is normal. Pulmonic Valve Structurally normal pulmonic valve. There is mild pulmonic regurgitation. Pericardium Normal pericardium without effusion. No pleural effusion. Great Vessels Normal aortic root dimension. The aortic arch and great vessels are well seen and are normal. CONCLUSIONS 1. Normal EF of 55%. 2. Moderate left atrial enlargement. 3. Mild to moderate mitral regurgitation. 4. Trace tricuspid regurgitation. 5. Mild aortic regurgitation. 6. Mild pulmonic regurgiation. Jevon Hernandez M.D. (Electronically Signed) Final Date: 25 September 2017 09:02 MEASUREMENTS (Male / Female) Normal Values 2D ECHO LV Diastolic Diameter PLAX 4.6 cm 4.2 - 5.9 / 3.9 - 5.3 cm LV Systolic Diameter PLAX 3.1 cm 2.1 - 4.0 cm LV Fractional Shortening PLAX 32.6 % 25 - 46 % LV Ejection Fraction 2D Teich 61.0 % IVS Diastolic Thickness 1.0 cm LVPW Diastolic Thickness 1.1 cm LV Relative Wall Thickness 0.5 LVOT Diameter 2.1 cm Aortic Root Diameter 3.2 cm LA Systolic Diameter LX 4.5 cm 3.0 - 4.0 / 2.7 - 3.8 cm LA Volume 48.0 cm 18 - 58 / 22 - 52 cm DOPPLER AV Peak Velocity 115.0 cm/s AV Peak Gradient 5.3 mmHg LVOT Peak Velocity 52.8 cm/s LVOT Peak Gradient 1.1 mmHg AV Area Cont Eq pk 1.6 cm Mitral E Point Velocity 61.2 cm/s Mitral A Point Velocity 61.7 cm/s Mitral E to A Ratio 1.0 MV Deceleration Time 599.0 ms TR Peak Velocity 261.0 cm/s TR Peak Gradient 27.2 mmHg PV Peak Velocity 85.5 cm/s PV Peak Gradient 2.9 mmHg LV E' Lateral Velocity 8.7 cm/s Mitral E to LV E' Lateral Ratio 7.1 LV E' Septal Velocity 3.8 cm/s Mitral E to LV E' Septal Ratio 16.1
--- NOTE | 2017-09-25 12:13 | PN- Pulmonary ---
Subjective HPI/Critical Care Issues: Stable yesterday had asymptomatic Sustained VT Objective Current Medications: Current Medications Sig/Levi Start time Last Medication Dose Route Stop Time Status Admin Amiodarone HCl 400 MG BID 09/24 2099 AC 09/25 PO 08 Aspirin Buffered 81 MG DAILY 09/24 899 AC 09/25 PO 08 Atenolol 50 MG BID 09/23 2099 AC 09/25 PO 0807 Atorvastatin Calcium 80 MG DAILY 09/24 899 AC 09/25 PO 0807 Heparin Sodium 5,000 UNIT Q8 09/23 2242 AC 09/25 (Porcine) SC 0648 Lisinopril 40 MG DAILY 09/24 899 AC 09/25 PO 0807 Nitroglycerin 0.4 MG Q24 PRN 09/[address] [facility] Vital Signs & I&O Last 24 Hrs of Vitals and I&O: Vital Signs Date Time Temp Pulse Resp B/P B/P Pulse O2 O2 Flow FiO2 Mean Ox Delivery Rate 09/25 08 65 148/90 09/25 0600 97.6 65 18 148/90 96 09/24 2048 98.2 60 18 138/88 96 Room Air 09/24 204 70 136/88 09/24 2045 70 136/88 09/24 1455 97.7 60 18 140/80 96 Room Air Intake & Output 09/25 1600 09/25 0800 09/25 0000 Intake Total 50 340 Output Total 400 Balance -350 340 Intake, Oral 50 340 Output, Urine 400 Impression/Plan Impression/Plan Impression/Plan: General Appearance: Alert, Oriented X3, Cooperative, No Acute Distress Cardiovascular: Normal S1, Normal S2, murmur present Lungs: Clear to Auscultation, Normal Air Movement Abdomen: Soft, No Tenderness Extremities: No Clubbing, No Cyanosis, No Edema Vascular: Normal Pulses, Pulses Symmetrical ECHOCONCLUSIONS 1. Normal EF of 55%. 2. Moderate left atrial enlargement. 3. Mild to moderate mitral regurgitation. 4. Trace tricuspid regurgitation. 5. Mild aortic regurgitation. 6. Mild pulmonic regurgiation. This is a gentleman with ischemic heart disease in the past with CABG, last stress test negative, now comes in with symptoms of lightheadedness after he started his Flomax. This morning he feels much better. He was hydrated. No chest pain no chest discomfort now and his troponin is normal. Issues include Recurrent sustained VT in a gentleman with IHD with preserved ef Orthostatic hypotension resolved upon admission most likely related to mild dehydration and Flomax Ischemic heart disease, no active ischemia at this time Hypertension, hyperlipidemia, chronic angina Recurrent dizzy spells at home - rule out recurrent vt REC change to full admit Cont to watch in tele Check magnesium and replace if less than 2 iv Amiodarone per cardio COnt all meds including betablocker and aci Will follow
[2017-09-25 14:00] VITALS: BP 130/72
--- NOTE | 2017-09-25 16:46 | PN- Cardiology ---
Subjective Subjective: * Patient reports difficulty with urination. * No arrhythmias on Amiodarone. * Normal EF Objective Vital Signs and I&Os Vital Signs Date Time Temp Pulse Resp B/P B/P Pulse O2 O2 Flow FiO2 Mean Ox Delivery Rate 09/25 1400 98.6 60 20 130/72 97 09/25 0806 65 148/90 09/25 0600 97.6 65 18 148/90 96 09/25 2047 98.2 60 18 138/88 96 Room Air 09/24 2044 70 136/88 09/24 2044 70 136/88 Intake & Output 09/25 1600 09/25 0800 09/25 0000 09/24 1600 09/24 0809/24 0000 Intake Total 500 50 340 410 200 Output Total 400 Balance 500 -350 340 410 200 Intake, IV 10 Intake, Oral 500 50 340 400 200 Output, Urine 400 Patient 180 lb Weight Physical Exam: General: WD/ WN male in NAD; alert and oriented x 3 HEENT: NC/ AT, PERRL, EOMI Neck: no JVD, no carotid bruit Heart: RRR w/o murmur Lungs: clear bilaterally Abdomen: soft, NT, +ve bowel sounds Extremities: no edema Assessment/Plan Assessment/Plan * This patient has known coronary artery disease with old bypass grafts and known occlusion of his SVG. Nevertheless, his last stress test is negative for ischemia, his chest pain has not progressed, his troponin is normal and there are no acute ischemic electrocardiographic changes. Continue to monitor this patient on telemetry and continue non-invasive medical therapy with NTG patch, Atenolol, aspirin and a statin. * This patient started having symptoms of lightheadedness after beginning his new prostate medication. Although I had some level of suspicion that his syncope was related to beginning this medication, his run of ventricular tachycardia is a more concerning potential cause of syncope. Continue Amiodarone 400mg BID and will continue to monitor on telemetry. We will arrange for an EP evaluation for possible defibrillator placement. * If it appears that his syncope is clearly related to VT then we will restart his Tamsulosin. Hold for today. Continue telemetry? Yes
[2017-09-25 20:18] VITALS: BP 158/82
[2017-09-26 06:31] VITALS: BP 142/84
--- NOTE | 2017-09-26 07:07 | PN- Housestaff ---
Subjective Follow-up For: syncope Complaints: no complaints Tele-Events Since Last Visit: none Subjective: Patient was examined bed side and was doing fine, asked when he could go home Review of Systems Constitutional: Reports: see HPI. Objective Last 24 Hrs of Vital Signs/I&O Vital Signs Date Time Temp Pulse Resp B/P B/P Pulse O2 O2 Flow FiO2 Mean Ox Delivery Rate 09/26 1505 98.3 67 18 128/70 96 Room Air 09/26 0923 60 142/84 09/26 0918 60 142/84 09/26 0916 60 142/84 09/26 0631 98.3 5 18 142/84 96 Room Air Physical Exam General Appearance: Alert, Oriented X3, Cooperative, No Acute Distress Cardiovascular: Regular Rate, No Murmurs Lungs: Clear to Auscultation, Normal Air Movement Abdomen: Normal Bowel Sounds, Soft, No Tenderness, No Hepatospenomegaly, No Masses Neurological: Normal Speech, Strength at 5/5 X4 Ext, Normal Tone, Sensation Intact Extremities: No Clubbing, No Cyanosis, No Edema, Normal Pulses, No Tenderness/ Swelling Assessment/Plan Assessment: Assessment and plan was- #Orthostatic hypotension #Recurrent sustained VT - Hold Tamsulosin and begin Proscar 5mg daily. - his last stress test is negative for ischemia, his chest pain had not progressed, his troponin is normal and there are no acute ischemic electrocardiographic changes. Continue medical therapy with Atenolol, aspirin and a statin. We will also continue NTG since he had been on this medication for an extended period of time and was tolerating it well. -started on Amiodarone 400 mg BID - Mg levels were monitored and managed - EPS evaluation done and Patient to be followed up outpatient. Dr conner suggested his VT was not thought to be fast enough to result in syncope. They will arrange for an outpatient loop recorder so that we can assess his heart rhythm if he again syncopizes. Change Amiodarone to 200mg daily next 10/03. Continue it at 400mg BID until that time. - Problem List: 1. Syncope Pain Ratin Pain Location: none Pain Goal: Remain pain free Pain Plan: none Tomorrow's Labs & Rationales: none
--- NOTE | 2017-09-26 10:22 | PN- Att Addend ---
Attending Addendum Attending Brief Note Patient has no complaints laying comfortably in bed no chest pain or shortness of breath slight difficulty urinating. Daughter at the bedside. Yesterday had an episode of symptomatic sustained VT. Spoke to Dr. Hernandez, will ask fast food crew member Dr. Culp to see the patient to see if this could be related to medication or underlying heart disease. Vital signs are stable no fever. No changes in physical examination. Troponins negative so far. We will continue telemetry monitoring of the heart rate and looking for arrhythmias. And follow electrophysiologists recommendations. Intake & Output 09/26 1600 09/26 04009/25 1600 09/25 0400 09/24 1600 09/24 0400 Intake Total 550 340 410 200 Output Total 400 Balance 150 340 410 200 Intake, IV 10 Intake, Oral 550 340 400 200 Output, Urine 400 Patient 180 lb Weight Current Medications Sig/Levi Start time Last Medication Dose Route Stop Time Status Admin Amiodarone HCl 400 MG BID 09/24 2099 AC 09/26 PO 0923 Aspirin Buffered 81 MG DAILY 09/24 899 AC 09/26 PO 0915 Atenolol 50 MG BID 09/23 2099 AC 09/26 PO 0918 Atorvastatin Calcium 80 MG DAILY 09/24 899 AC 09/26 PO 0915 Heparin Sodium 5,000 UNIT Q8 09/23 2242 AC 09/26 (Porcine) PA 0536 Lisinopril 40 MG DAILY 09/24 899 AC 09/26 PO 0916 Nitroglycerin 0.4 MG Q24 PRN 09/24 1999 [facility] Laboratory Tests 09/26/17 0703: Magnesium 1.9 09/26/17 0600: Magnesium Cancelled 09/24/17 0650: Magnesium 1.9, Troponin I < 0.01 09/23/17 2019: Troponin I < 0.01 09/23/17 1716: Urine Color YEL, Urine Clarity CLEAR, Urine pH 6.0, Ur Specific [place] 1.015, Urine Protein NEG, Urine Ketones NEG, Urine Nitrite NEG, Urine Bilirubin NEG, Urine Urobilinogen 0.2, Ur Leukocyte Esterase NEG, Ur Microscopic SEDIMENT EXAMINED, Urine RBC 1-3, Ur Epithelial Cells RARE, Urine Mucus FEW, Urine Hemoglobin TRACE-INTACT H, Urine Glucose NEG 09/23/17 1355: Anion Gap 7, Estimated GFR > 60, BUN/Creatinine Ratio 14.0, Glucose 97, Calcium 9.3, Total Bilirubin 1.1, AST 33, ALT 42, Alkaline Phosphatase 64, Troponin I < 0.01, Gwt-S-Az[place] Pept 477 H, Total Protein 7.1, Albumin 4.2, Globulin 2.9, Albumin/Globulin Ratio 1.4, CBC w Diff NO MAN DIFF REQ, RBC 5.04, MCV 87.4, MCH 30.1, MCHC 34.5, RDW 14.6 H, MPV 8.6, Gran % 60.7, Lymphocytes % 25.8, Monocytes % 11.3 H, Eosinophils % 1.8, Basophils % 0.4, Absolute Granulocytes 3.9, Absolute Lymphocytes 1.7, Absolute Monocytes 0.7 H, Absolute Eosinophils 0.1, Absolute Basophils 0 Vital Signs Date Time Temp Pulse Resp B/P B/P Pulse O2 O2 Flow FiO2 Mean Ox Delivery Rate 09/26 0923 60 142/84 09/26 0918 60 142/84 09/26 0916 60 142/84 09/26 0631 98.3 5 18 142/84 96 Room Air 09/25 2017 98.3 57 18 158/82 96 Room Air 09/25 2016 57 158/82 09/26 2015 57 158/82 09/25 1400 98.6 60 20 130/72 97
--- NOTE | 2017-09-26 10:46 | Cons- Cardiology ---
General Information and HPI Consulting Request Date of Consult: 09/26/17 Requested By: Bolivar NARANJO,Juan Hernandez M.D. PhD Reason for Consult: I was asked to see this patient in regards to syncope in the setting of coronary artery disease with now documented nonsustained VT and also recent initiation of tamsulosin. Source of Information: patient, old records Exam Limitations: no limitations History of Present Illness: I was asked to see this patient in regards to 3 episodes of syncope after starting tamsulosin. On monitoring he had a run of nonsustained ventricular tachycardia. To review his history this is an 87-year-old man who has known coronary artery disease. He had bypass surgery in 2005. Apparently he was subsequently shown to have an occlusion of at least one of his saphenous vein graft. An echocardiogram done in 2013 showed an EF of 40%. Recently he was begun on tamsulosin for his prostatism. Since then he has had a total of 3 episodes of fainting. As far as we can tell that all occurred in the upright position or getting up. On the day of admission he had another episode of syncope while standing and came to the ER. An echocardiogram done 04/13/2017 showed a normal EF 55% there is mild to moderate MR there is no wall motion abnormalities mentioned. Apparently did have documented postural hypotension and was hydrated. His Tamsulosin was stopped. On monitoring he had a fairly long run of an irregular monomorphic nonsustained ventricular tachycardia. Is started out slow and accelerated before terminating. He was begun on amiodarone 400 mg twice a day. He has not had any further episodes. Allergies/Medications Allergies: Coded Allergies: NO KNOWN ALLERGIES (12/26/13) Home Med List: Aspirin (Ecotrin*) 81 MG TABLET.DR 1 TAB PO DAILY HEART HEALTH (Reported) Atenolol 50 MG TABLET 1 TAB PO BID BP (Reported) Atorvastatin Calcium 80 MG TABLET 1 TAB PO DAILY CHOLESTROL (Reported) Lisinopril 40 MG TABLET 1 TAB PO DAILY HEART (Reported) Nitroglycerin (Nitro-Dur) 0.4 MG/HOUR PATCH.TD24 1 PAT PAT Q24 PRN CHEST PAIN (Reported) Tamsulosin HCl 0.4 MG CAP.ER.24H 1 CAP PO DAILY BPH (Reported) Current Medications: Current Medications Sig/Levi Start time Last Medication Dose Route Stop Time Status Admin Amiodarone HCl 400 MG BID 09/24 2099 AC 09/26 PO 09 Aspirin Buffered 81 MG DAILY 09/24 899 AC 09/26 PO 09 Atenolol 50 MG BID 09/23 2099 AC 09/26 PO 09 Atorvastatin Calcium 80 MG DAILY 09/24 899 AC 09/26 PO 09 Heparin Sodium 5,000 UNIT Q8 09/23 2242 AC 09/26 (Porcine) SC 0536 Lisinopril 40 MG DAILY 09/24 899 AC 09/26 PO 09 Nitroglycerin 0.4 MG Q24 PRN 09/24 1999 [facility] Review of Systems Review of Systems: Constitutional: Negative for decreased appetite, weakness, malaise/fatigue, weight gain, weight loss HENT: Negative for congestion, hearing loss, hoarse voice, nosebleeds, sore throat, tinnitus Eyes: Negative for blurred vision, double vision, photophobia, redness, visual disturbances Cardiovascular: POSITIVE for chest pain, negative for shortness of breath, dyspnea on exertion, irregular heartbeat/palpitations, swelling, POSITIVE FOR near syncope, syncope, negative for orthopnea, paroxysmal nocturnal dyspnea, claudication, cyanosis Respiratory: Negative for cough, hemoptysis, shortness of breath, snoring, sleep apnea/sleep disordered breathing, sputum production, wheezing Endocrine: Negative for cold intolerance, heat intolerance, missed menstrual periods Hematologic/Lymphatic: Negative for adenopathy, abnormal bleeding, easy bruisability Skin: Negative for flushing, itching, rashes, skin cancer/suspicious lesions Musculoskeletal: Negative for arthritis, back pain, joint swelling, muscle cramps, muscle weakness Gastrointestinal: Negative for abdominal pain, change in bowel habits, constipation, diarrhea, dysphagia, heartburn, hemorrhoids, melena, nausea, vomiting Genitourinary: Negative for urinary incontinence, dysuria, flank pain, frequency , hematuria, nocturia, urgency Neurological: Negative for excessive daytime sleepiness, dizziness, focal weakness, headaches, lightheadedness, numbness, paresthesias, seizures, tremors, vertigo Psychiatric/behavioral: Negative for depression, hallucinations, memory loss, substance abuse, suicidal ideas, thoughts of violence, insomnia, nervousness/ anxiety Allergic/Immunologic: Negative for environmental allergies ALL OTHER SYSTEMS REVIEWED AND ARE NEGATIVE Past History Travel History Traveled to [place] past 21 day No Medical History Neurological: NONE EENT: NONE Cardiovascular: CAD, hypertension, hyperlipidemia Respiratory: NONE Gastrointestinal: NONE Hepatic: NONE Renal: NONE Musculoskeletal: NONE Psychiatric: NONE Endocrine: NONE Blood Disorders: NONE Cancer(s): NONE 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 Surgical History Surgical History: CABG (2002) Family History Relations & Conditions If Any: Relation not specified for: *No pertinent family history Psychosocial History Smoking Status: Unknown If Ever Smoked Exam & Diagnostic Data Vital Signs and I&O Vital Signs Date Time Temp Pulse Resp B/P B/P Pulse O2 O2 Flow FiO2 Mean Ox Delivery Rate 09/26 09 60 142/84 09/26 0918 60 142/84 09/26 0916 60 142/84 09/26 0631 98.3 5 18 142/84 96 Room Air 09/25 2017 98.3 57 18 158/82 96 Room Air 09/25 2016 57 158/82 09/26 2015 57 158/82 09/25 1400 98.6 60 20 130/72 97 Intake & Output 09/26 1600 09/26 0800 09/26 0000 09/25 1600 09/25 0800 09/25 0000 Intake Total 500 50 340 Output Total 400 Balance 500 -350 340 Intake, Oral 500 50 340 Output, Urine 400 Physical Exam: General/Constitutional: Oriented to person, place, and time. In no distress. Well-developed, well-nourished. Vital signs: see above. Head: Normocephalic/atraumatic Eyes: No xanthelasma or scleral icterus. Conjunctivae normal. Mouth: Moist mucous membranes without pallor or cyanosis Neck: Supple. No jugular venous distention, carotid bruits, thyromegaly Thorax/lungs/pulmonary: No chest deformity. Effort normal without respiratory distress. Lungs clear without wheezes or rales. Heart/Cardiovascular: Normal S1, S2 without murmurs, S3, or S4 Abdomen/GI: No distention, tenderness or masses Extremities: No cyanosis, clubbing, or edema Neuro: Alert and oriented to person, place, time. Grossly non-focal. Skin: Warm and dry. No diaphoresis. No major rashes. No erythema. No pallor or cyanosis. Psychiatric: Normal mood and affect, behavior appears normal. Assessment/Plan Assessment/Plan My assessment is that this patient has had 3 episodes of syncope. They've all occurred upon standing and have occurred after the initiation of tamsulosin on top of lisinopril atenolol and a Nitropatch. My strong suspicion is that this is due to postural hypotension and not a malignant ventricular arrhythmia. This is especially true given his normal ejection fraction it is unlikely his having sustained rapid VT. His VT on monitor looks more automatic then reentrant. However to be sure I would consider implanting a Link monitor to look at his rhythm. If he has recurrent syncope we can then tell essentially 100% of this is due to a tachy or bradycardic arrhythmia or not. I do think could be reasonable to continue amiodarone but would rapidly reduced the dose down to a very low dose of 100 mg daily. For would consider an ischemic workup as the patient has had some chest pain. Ranexa would be reasonable addition at some point. I would definitely stop his nitroglycerin patch as this can definitely provoke postural hypotension especially in combination with other medications. I would continue to check postural signs in the hospital. I would consider a urology consult to consider alternatives to tamsulosin, possibly another alpha brock or Proscar?? Copies To: Sage NARANJO,Melchor Perez; Bolivar NARANJO,Naresh Hernandez MD PHD,Jevon Coronado Consult Acknowledgment - Thank you for your consult request.
--- NOTE | 2017-09-26 13:18 | PN- Cardiology ---
Subjective Subjective: * Patient feels improved except for his urinary retention. * No arrhythmias since being placed on Amiodarone. * sinus rhythm with normal EF. Objective Vital Signs and I&Os Vital Signs Date Time Temp Pulse Resp B/P B/P Pulse O2 O2 Flow FiO2 Mean Ox Delivery Rate 09/26 0923 60 142/84 09/26 0918 60 142/84 09/26 0916 60 142/84 09/26 0631 98.3 5 18 142/84 96 Room Air 09/25 2017 98.3 57 18 158/82 96 Room Air 09/25 2016 57 158/82 09/26 2015 57 158/82 09/25 1400 98.6 60 20 130/72 97 Intake & Output 09/26 0809/26 0000 09/25 1600 09/25 0000 Intake Total 500 50 340 Output Total 400 Balance 500 -350 340 Intake, Oral 500 50 340 Output, Urine 400 Physical Exam: General: WD/ WN male in NAD; alert and oriented x 3 HEENT: NC/ AT, PERRL, EOMI Neck: no JVD, no carotid bruit Heart: RRR w/o murmur Lungs: clear bilaterally Abdomen: soft, NT, +ve bowel sounds Extremities: no edema Assessment/Plan Assessment/Plan * This patient has known coronary artery disease with old bypass grafts and known occlusion of his SVG. Nevertheless, his last stress test is negative for ischemia, his chest pain has not progressed, his troponin is normal and there are no acute ischemic electrocardiographic changes. Continue medical therapy with Atenolol, aspirin and a statin. We will also continue NTG since he had been on this medication for an extended period of time and was tolerating it well. * This patient started having symptoms of lightheadedness after beginning his new prostate medication. Although I had some level of suspicion that his syncope was related to beginning this medication, his run of ventricular tachycardia is a more concerning potential cause of syncope. As per Dr. Hankins consultation, his VT was not thought to be fast enough to result in syncope. We will arrange for an outpatient loop recorder so that we can assess his heart rhythm if he again syncopizes. Change Amiodarone to 200mg daily next Tuesday. Continue it at 400mg BID until that time. * Stop tamsulosin and begin Proscar 5mg daily. * Okay for discharge from a cardiac standpoint. Continue telemetry? No
[2017-09-26] MEDS ORDERED: FINASTERIDE5 M1 PO ×2 (14:05→14:10)
[2017-09-26] MEDS ORDERED: PACERONE200 M1 PO ×3 (14:05→14:17)
--- NOTE | 2017-09-26 14:15 | Discharge Summary ---
Visit Information Visit Dates Admission Date: 09/25/17 Discharge Date: 09/26/17 Hospital Course Course Attending Physician: Juan Lutz MD Primary Care Physician: Bolivar NARANJO,Juan Hospital Course: Patient is an 87-year-old male, presented with chief complaints of, dizziness and chest pain. Past medical history- Hypertension Hyperlipidemia Coronary artery disease status post CABG in 2005;with old bypass grafts and known occlusion of his SVG. History of present illness - Most of the history taken from the granddaughter, as patient is partially Mohawk speaking. According to them he had 3 episodes of fainting and last 1 week. In one episode around a week ago when he was in a store just sitting on the chair he felt slight dizziness without any fall. He continued to have intermittent dizziness. Yesterday he worked outside in the yard and around 3:57 PM he fall down on the floor. He recovered within a seconds. He denies for any episodes of nausea, vomiting, palpitation, seizure, incontinence of the stool and urine, tongue bite, diarrhea, dysuria, fever, chills, change in appetite. In the morning he dropped her daughter at the work and afterwards he started having slight tightness in the chest. Which she defined as something is sitting on the chest, intermittent, mild and radiated to both shoulder. They called Dr. Lutz who advised to come to the [facility] ED. Leroy patient thought the DIzziness was relatable with the new tamsulosin that he started taking only a few days ago Personal history -lives at home with the family denies alcohol, smoking Family history-noncontributory A subsequent stress test was negative for ischemia. Medical management has been pursued. In the ED the patient did have a 17mmHg drop in BP upon standing. The pt has a hx of ischemic heart disease. Last stress test was negative. 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 We continued to monitor on telemetry dt recurrent episodes of Vtach. Assessment and plan was- #Orthostatic hypotension #Recurrent sustained VT - Hold Tamsulosin and begin Proscar 5mg daily. - his last stress test is negative for ischemia, his chest pain had not progressed, his troponin is normal and there are no acute ischemic electrocardiographic changes. Continue medical therapy with Atenolol, aspirin and a statin. We will also continue NTG since he had been on this medication for an extended period of time and was tolerating it well. -started on Amiodarone 400 mg BID - Mg levels were monitored and managed - EPS evaluation done and Patient to be followed up outpatient. Dr conner suggested his VT was not thought to be fast enough to result in syncope. They will arrange for an outpatient loop recorder so that we can assess his heart rhythm if he again syncopizes. Change Amiodarone to 200mg daily next 10/03. Continue it at 400mg BID until that time. - Allergies: Coded Allergies: NO KNOWN ALLERGIES (12/26/13) Disposition Summary Disposition Principal Diagnosis: Syncope Additional Diagnosis: orthostatic Hypotension Discharge Disposition: home or self care Discharge Instructions General Discharge Information Code Status: Do Not Resucitate/Intubat Patient's Diet: regular Patient's Activity: as tolerated Follow-Up Instructions/Appts: foloow up with offset press operator helper within 1 week of discharge follow up with PCP within 1 week of discharge Medications at Discharge Discharge Medications: Stop taking the following medications: Tamsulosin HCl (Tamsulosin HCl) 0.4 MG CAP.ER.24H ORAL DAILY Qty = 30 Continue taking these medications: Aspirin (Ecotrin*) 81 MG TABLET. 1 Tablet ORAL DAILY Comments: Last Taken: 09/26/17 Time: 0915 AM Atenolol (Atenolol) 50 MG TABLET 1 Tablet ORAL TWICE DAILY Comments: Last Taken: 09/26/17 Time: 0915 AM Atorvastatin Calcium (Atorvastatin Calcium) 80 MG TABLET 1 Tablet ORAL DAILY Comments: Last Taken: 09/26/17 Time: 09:15 AM Nitroglycerin (Nitro-Dur) 0.4 MG/HOUR PATCH.TD24 1 Patch PATCH EVERY 24 HOURS as needed for CHEST PAIN Comments: NOT GIVEN IN HOSPITAL. Lisinopril (Lisinopril) 40 MG TABLET 1 Tablet ORAL DAILY Qty = 60 Comments: Last Taken: 09/26/17 Time: 0915 AM Start taking the following new medications: Finasteride (Finasteride) 5 MG TABLET 5 Milligram ORAL DAILY Qty = 30 No Refills Instructions: . Comments: NOT GIVEN IN HOSPITAL Amiodarone HCl (Pacerone) 200 MG TABLET 1 Tablet ORAL See Instructions Qty = 60 No Refills Instructions: 2 tab 2 times x 7 days(10/03/2017) 1 tab once daily continue Comments: Last Taken: 09/26/17 Time: 09:15 AM Copies To: Dread NARANJO,Cesar Coronado; Sage NARANJO,Melchor Perez; Naresh Luzt MD, MD PHD, Jevon Coronado
[2017-09-26 15:05] VITALS: BP 128/70
== END 2017-09-26 15:45 | DRG 312 ==
LOC: ERH 10:47 → ERHI 16:00 → ENRESERV 17:26 → ENTRNSPT 20:27 → EDTRNSPT 20:35 → EDTRNSPTSTS 20:35 → 1NO 20:40 → CMPTRNSPT 21:03 → 1NO 09-25 13:13 → ENPENDDIS 09-26 15:14 → 1NO 09-26 15:45
PROVIDERS: Physician Assistant Medical
DX: I95.2 Hypotension due to drugs (principal); I47.2 Ventricular tachycardia; I25.719 Atherosclerosis of autologous vein coronary artery bypass graft(s) with unspecified angina pectoris; E86.0 Dehydration; Z95.1 Presence of aortocoronary bypass graft; T44.6X5A Adverse effect of alpha-adrenoreceptor antagonists, initial encounter; E78.5 Hyperlipidemia, unspecified; R07.9 Chest pain, unspecified; Z66 Do not resuscitate; R33.9 Retention of urine, unspecified; I25.10 Atherosclerotic heart disease of native coronary artery without angina pectoris; I10 Essential (primary) hypertension
CPT/HCPCS: 1NP; 36592; 71046; 81001; 93005; 93010; 93306; J1644